=== PATIENT | female | born 1985 | race Caucasian/White ===

== ENCOUNTER 2020-08-01 08:44 | Outpatient (REF) | payer MEDICAID, SELFPAY ==
--- NOTE | 2020-08-01 08:48 | EMG_ITS ---
HISTORY OF PRESENT ILLNESS: This is a 35-year-old woman with 6-month history of bilateral upper extremity pain and numbness and tingling and locking of the fingers with the right being worse than the left. PHYSICAL EXAMINATION: On examination, she is alert and oriented with normal intellectual functions. Cranial nerves II through XII are normal. Muscle tone and strength are normal in all 4 extremities. There is mild weakness of the right abductor pollicis brevis. IMPRESSION: Carpal tunnel syndrome. Nerve conduction EMG study: Moderate carpal tunnel syndrome on the right. Normal EMG of the right C5-T1 innervated muscles. MD NICKI Bernal/NARINDER / [id number]
== END 2020-08-01 08:45 | disposition home or self-care (01) ==
LOC: HO.NEURO 08:44
PROVIDERS: Visit Provider Nurse Practitioner
DX: G56.01 Carpal tunnel syndrome, right upper limb (principal)
CPT/HCPCS: 95885; 95913

== ENCOUNTER 2020-08-28 09:45 | Outpatient (REF) | payer MEDICAID, SELFPAY ==
--- NOTE | ~2020-08-28 | XR_ITS ---
EXAMINATION: XR KNEE, LEFT CLINICAL INFORMATION: Left knee pain COMPARISON: None TECHNIQUE: Four views of the left knee. FINDINGS: Bones and soft tissues are normal. No fracture or joint effusion. Alignment is anatomic. Joint spaces are well maintained. No abnormal soft tissue calcification. XR/XR knee LT 4V IMPRESSION: Normal left knee.
== END 2020-08-28 09:46 | disposition home or self-care (01) ==
LOC: HO.XRAY 09:45
PROVIDERS: PCP Nurse Practitioner; Visit Provider Nurse Practitioner
DX: M25.562 Pain in left knee (principal)
CPT/HCPCS: 73564

== ENCOUNTER → 2020-09-25 10:37 | Outpatient (BNVA) | payer MEDICAID, SELFPAY | PROVIDERS: Visit Provider Orthopaedic Surgery | DX: G56.01 Carpal tunnel syndrome, right upper limb (principal) | CPT/HCPCS: 99202 ==

== ENCOUNTER 2020-11-15 09:00 | Day surgery (SDC) | payer MEDICAID, SELFPAY ==
[2020-11-15 09:18] VITALS: BP 99/37; PULSE 70; RESP 18; TEMP 37.2; O2SAT 98
[2020-11-15 09:20] VITALS: BMI 17.7
--- NOTE | 2020-11-15 09:40 | MHC.SHP ---
Pre-Procedural Eval Section A Date of Service: 11/15/20 Section B Chief Complaint: carpal tunnel Allergies: Allergies Allergy/AdvReac Type Severity Reaction Status Date / Time No Known Allergies Allergy Verified 09/25/20 11:03 Plan I have reviewed the history and physical and performed a pertinent physical examination on my patient. No changes have occurred unless specified.
--- NOTE | 2020-11-15 09:40 | W.PM.OPN ---
Operative Note Operative Note Date of Service: 11/15/20 Narrative: Preop diagnosis: 1. Right Carpal tunnel syndrome Postop diagnosis: same Procedure: 1. right Carpal tunnel release Surgeon: Thea Cedeno MD Anesthesia: local block using 1% lidocaine with epinephrine Findings: Thickened transverse carpal ligament. EBL: Less than 5 mL Specimens: None Complications: None Disposition: Brought to recovery room in stable condition Plan: Follow-up for 7-10 days for wound check and suture removal Indications: The patient is 35 years old, with right carpal tunnel syndrome that has been unresponsive to nonoperative management. The risks and benefits of operative treatment including but not limited to risk of damage to blood vessels, nerves, tendons, infection, persistent pain, persistent symptoms, or possible need for additional surgery were discussed with the patient and the patient wishes to proceed with surgery. Procedure: Once consent was obtained a local block was performed using a combination of 1% lidocaine with epinephrine. The patient was then brought back to the operating suite and placed on the operative table in supine position. A tourniquet was applied to the proximal aspect of the right upper extremity and the limb was prepped and draped in a standard surgical fashion. Once assured that we had a good block, a 1.5 cm longitudinal incision was made centered over the carpal tunnel. The incision was made through the skin to the subcutaneous tissues using a #15 blade. Dissection was made down to the level of the transverse carpal ligament with care being taken to protect the palmar cutaneous nerve. Once the transverse carpal ligament was clearly visualized, a longitudinal incision was made in the transverse carpal ligament 1st using a #15 blade, then using tenotomy scissors under direct visualization. Care was taken to look for and protect the motor branch of the median nerve when seen in this area. Once satisfied with our carpal tunnel release the wound was copiously irrigated with normal saline and hemostasis was obtained with a brief period of local pressure. The skin edges were reapproximated with some 5.0 nylon suture material and a sterile dressing was applied. The patient appears to have tolerated the procedure well and with no complications. All digits were well vascularized at the conclusion of the case.
[2020-11-15 11:30] VITALS: BP 97/26; PULSE 53; RESP 18; TEMP 37.3; O2SAT 97
[2020-11-15 11:34] VITALS: BP 97/52
== END 2020-11-15 11:55 | disposition home or self-care (01) ==
PROVIDERS: PCP Nurse Practitioner; Visit Provider Orthopaedic Surgery
PROC: (CPT 64721; principal; 2020-11-15 10:30)
DX: G56.01 Carpal tunnel syndrome, right upper limb (principal); F17.210 Nicotine dependence, cigarettes, uncomplicated
CPT/HCPCS: 64721

== ENCOUNTER → 2020-11-27 12:45 | Outpatient (BNVA) | payer MEDICAID, SELFPAY | PROVIDERS: Visit Provider Orthopaedic Surgery | DX: G56.01 Carpal tunnel syndrome, right upper limb (principal); F17.210 Nicotine dependence, cigarettes, uncomplicated; Z48.02 Encounter for removal of sutures | CPT/HCPCS: 99212 ==

== ENCOUNTER → 2021-08-06 11:29 | Outpatient (BNVA) | payer MEDICAID, SELFPAY | PROVIDERS: Visit Provider Orthopaedic Surgery | DX: R20.0 Anesthesia of skin (principal); R20.2 Paresthesia of skin; Z86.69 Personal history of other diseases of the nervous system and sense organs; Z98.890 Other specified postprocedural states | CPT/HCPCS: 99212 ==

== ENCOUNTER 2021-10-30 08:39 | Outpatient (REF) | payer MEDICAID, SELFPAY ==
--- NOTE | 2021-10-30 | EMG_ITS ---
HISTORY OF PRESENT ILLNESS: This is a 36-year-old woman with a history of right carpal tunnel release about 10 months ago, comes in with recurrence and continuing symptoms of numbness in the right hand and worsening numbness in the left hand. The hands feel stiff and swollen. PHYSICAL EXAMINATION: On examination, she has a well-healed scar of right carpal tunnel release. Muscle tone and strength are normal. No Tinel or Phalen sign. IMPRESSION: Carpal tunnel syndrome. Nerve conduction EMG study: Mild carpal tunnel syndrome bilaterally, slightly worse on the right. Compared to the study of 08/01/2020, there appears to be mild improvement on the right, but mild worsening on the left. Normal EMG of the right C5-T1 innervated muscles. MD NICKI Bernal/NARINDER / [id number]
== END 2021-10-30 08:40 | disposition home or self-care (01) ==
LOC: HO.NEURO 08:39
PROVIDERS: Visit Provider Orthopaedic Surgery
DX: R20.0 Anesthesia of skin (principal); R20.2 Paresthesia of skin
CPT/HCPCS: 95885; 95913

== ENCOUNTER → 2021-11-08 09:02 | Outpatient (BNVA) | payer MEDICAID, SELFPAY | PROVIDERS: PCP Nurse Practitioner; Visit Provider Orthopaedic Surgery | DX: G56.03 Carpal tunnel syndrome, bilateral upper limbs (principal) | CPT/HCPCS: 99212 ==

== ENCOUNTER 2022-12-25 15:24 | Outpatient (REF) | payer MEDICAID, SELFPAY ==
[2022-12-25 16:08] LABS: MANUAL DIFF FLAG NO
[2022-12-25 16:12] LABS: Basophils Percent Auto 0.5 % (0-2); Eosinophils Absolute Auto 0.1 X10*3/uL (0.0-0.4); Eosinophils Percent Auto 0.9 % (0-4); Hematocrit 42.5 % (37.0-47.0); Hemoglobin 14.6 g/dl (12.0-16.0); Imm Gran Abs Auto 0.02 X10*3/uL (0.00-0.03); Imm Gran Pct Auto 0.3 % (0.0-0.4); Lymphocytes Absolute Auto 3.4 X10*3/uL (1.2-4.9); Lymphocytes Percent Auto 42.4 % (20-40); Mean Corpuscular HGB Conc 34.4 g/dl (31.0-35.0); Mean Corpuscular Hemoglobin 33.5 pg (27.0-33.0); Mean Corpuscular Volume 97.5 fL (80.0-98.0); Mean Platelet Volume 11.6 fL (9.4-12.3); Monocytes Absolute Auto 0.6 X10*3/uL (0.1-1.2); Monocytes Percent Auto 7.8 % (2-11); Neutrophils Absolute Auto 3.8 x10*3/uL (2.0-8.3); Neutrophils Percent Auto 48.1 % (45-73); Platelet Count 229 X10*3/uL (160-400); Red Blood Count 4.36 X10*6/uL (4.20-5.50); Red Cell Distribution Width 11.8 % (11.0-16.0)
[2022-12-25 16:50] LABS: Rheumatoid Factor < 13.0 IU/mL (<15.0)
[2022-12-25 16:58] LABS: Anion Gap 13 (12-20); Blood Urea Nitrogen 8 mg/dL (9-16); C Reactive Protein < 0.04 mg/dL (< or = 0.50); Calcium 9.9 mg/dL (8.4-10.2); Carbon Dioxide 26 mmol/L (22-29); Chloride 104 mmol/L (96-108); Estimated Glomerular Filt Rate > 60; Glucose Random 77 mg/dL (60-115); Potassium 3.9 mmol/L (3.3-5.1); Sodium 139 mmol/L (135-145)
[2022-12-25 17:07] LABS: Erythrocyte Sedimentation Rate 7 MM/HR (0-20)
[2022-12-25 17:13] LABS: Vitamin B12 312 pg/mL (200-900)
[2022-12-25 17:20] LABS: TSH reflex Free T4 1.37 uIU/mL (0.32-4.0)
[2022-12-26 16:48] LABS: Cyclic Citrullinated Peptide <16 UNITS
== END 2022-12-25 15:25 | disposition home or self-care (01) ==
LOC: HO.HHCL 15:24
PROVIDERS: Visit Provider Registered Nurse
DX: M25.50 Pain in unspecified joint (principal)
CPT/HCPCS: 36415; 80048; 82607; 84443; 85025; 85652; 86140; 86200; 86431

== ENCOUNTER 2023-01-29 13:20 | Outpatient (REF) | payer MEDICAID, SELFPAY ==
--- NOTE | 2023-01-29 | EMG_ITS ---
Chief complaint: History of right Carpal Tunnel Syndrome surgery 2021 but continues to have pain/numbness. History of left Carpal Tunnel Syndrome. Reason for referral: Evaluate for Carpal Tunnel Syndrome, compare to previous studies Referred by: Dr. Cedeno Procedure done: Bilateral upper extremities NCS/EMG Precautions and/or limitations: None The limb temperature was monitored continuously and remained between 32-36 degrees C during the performance of the NCS. Nerve Conduction Studies Anti Sensory Summary Table ?Stim Site NR Onset (ms) Norm Onset (ms) Peak (ms) Norm Peak (ms) O-P Amp (?V) Norm O-P Amp Site1 Site2 Delta-0 (ms) Dist (cm) Juan Alberto (m/s) Norm Juan Alberto (m/s) Left Median Anti Sensory (2nd Digit) Wrist ? 3.2 3.9 <3.6 40.7 >10 Wrist 2nd Digit 3.2 14.0 44 Right Median Anti Sensory (2nd Digit) Wrist ? 3.0 3.9 <3.6 41.1 >10 Wrist 2nd Digit 3.0 14.0 47 Right Radial Anti Sensory (Thumb) Forearm ? 1.8 2.3 <3.1 32.0 Forearm Thumb 1.8 0.0 Left Ulnar Anti Sensory (5th Digit) Wrist ? 2.6 3.2 <3.7 49.1 >15.0 Wrist 5th Digit 2.6 14.0 54 Right Ulnar Anti Sensory (5th Digit) Wrist ? 2.6 3.4 <3.7 45.9 >15.0 Wrist 5th Digit 2.6 14.0 54 Motor Summary Table ?Stim Site NR Onset (ms) Norm Onset (ms) O-P Amp (mV) Norm O-P Amp iAmp (mV) Amp (1st) (%) Site1 Site2 Delta-0 (ms) Dist (cm) Juan Alberto (m/s) Norm Juan Alberto (m/s) Left Median Motor (Abd Poll Brev) Wrist ? 3.6 <3.9 6.9 >4.5 9.8 100.0 Elbow Wrist 3.3 18.0 55 >45 Elbow ? 6.9 7.2 10.1 104.3 Right Median Motor (Abd Poll Brev) Wrist ? 3.8 <3.9 8.6 >4.5 9.6 100.0 Elbow Wrist 3.5 20.0 57 >45 Elbow ? 7.3 8.2 9.5 95.3 Left Ulnar Motor (Abd Dig Minimi) Wrist ? 2.7 <3.0 8.3 >5 9.7 100.0 B Elbow Wrist 3.2 18.5 58 >45 B Elbow ? 5.9 8.6 10.2 103.6 A Elbow B Elbow 1.9 10.0 53 >45 A Elbow ? 7.8 8.6 10.2 103.6 Right Ulnar Motor (Abd Dig Minimi) Wrist ? 3.0 <3.0 8.5 >5 10.6 100.0 B Elbow Wrist 2.8 16.5 59 >45 B Elbow ? 5.8 7.9 10.2 92.9 A Elbow B Elbow 1.9 10.0 53 >45 A Elbow ? 7.7 8.1 10.5 95.3 EMG ?Side Muscle Nerve Root Ins Act Fibs Psw Amp Dur Poly Recrt Int Pat Comment Right FlexCarRad Median C6-7 Nml Nml Nml Nml Nml 0 Nml Complete Right Biceps Musculocut C5-6 Nml Nml Nml Nml Nml 0 Nml Complete Right Triceps Radial C6-7-8 Nml Nml Nml Nml Nml 0 Nml Complete Right Deltoid Axillary C5-6 Nml Nml Nml Nml Nml 0 Nml Complete Left FlexCarRad Median C6-7 Nml Nml Nml Nml Nml 0 Nml Complete Left Biceps Musculocut C5-6 Nml Nml Nml Nml Nml 0 Nml Complete Left Triceps Radial C6-7-8 Nml Nml Nml Nml Nml 0 Nml Complete Left Deltoid Axillary C5-6 Nml Nml Nml Nml Nml 0 Nml Complete Left Abd Poll Brev Median C8-T1 Nml Nml Nml Nml Nml 0 Nml Complete Right Abd Poll Brev Median C8-T1 Nml Nml Nml Nml Nml 0 Nml Complete FINDINGS: Bilateral median sensory nerves showed prolonged peak latency. All other nerves tested were within normal. Concentric needle EMG was performed in selected muscles of the bilateral upper extremities. Study did not reveal signs of electric abnormalities as shown in the table below. IMPRESSION: 1. This is an abnormal study. 2. There is electrodiagnostic evidence for bilateral mild median neuropathy at the wrists, consistent with carpal tunnel syndrome. 3. There is no electrodiagnostic evidence for ulnar neuropathy, brachial plexopathy, or cervical radiculopathy. CLINICAL COMMENT: Shows improvement on both sides as compared to NCS/EMG done 2021. Thank you for your kind referral. Sherry Heath MD, KANU Board Certified, [place] [employer] and [employer] (ABPMR) Board Certified, [place] Board [employer] Electrodiagnostic Medicine (ABEM) CODIN [id number] x 2 MTDD
== END 2023-01-29 13:21 | disposition home or self-care (01) ==
LOC: HO.NEURO 13:20
PROVIDERS: PCP Nurse Practitioner; Visit Provider Registered Nurse
DX: R20.0 Anesthesia of skin (principal); R20.2 Paresthesia of skin
CPT/HCPCS: 95886; 95911

== ENCOUNTER → 2023-01-29 13:25 | Outpatient (BNV) | payer MEDICAID, SELFPAY | PROVIDERS: PCP Nurse Practitioner; Visit Provider Physical Medicine & Rehabilitation | DX: G56.13 Other lesions of median nerve, bilateral upper limbs (principal); G56.03 Carpal tunnel syndrome, bilateral upper limbs | CPT/HCPCS: 95886; 95911 ==

== ENCOUNTER 2023-03-04 10:01 | Outpatient (AMB) | payer MEDICAID, SELFPAY ==
--- NOTE | 2023-03-04 10:14 | A.OFFVIS_ITS ---
Intake Vital Signs 03/04/23 10:19 Height 5 ft 2 in Weight 105 lb BMI 19.2 Intake Visit Reasons: O/V Numb& ting bi hands/EMG 01/29/23. Intake Note: Chelsy 38yr old female presents today for her follow up visit for her right carpal tunnel syndrome status post right carpal tunnel release from 11/15/2020. States she cont's to have numbness in right hand and now her left hand as well. She is not able to sleep due to numbness and burning sensation. Also has locking of her right thumb and index that started about 6 months and has worsen. Allergies No Known Allergies Allergy (Verified 03/04/23 10:22) HPI O/V Numb& ting bi hands/EMG 01/29/23. HPI Details Chelsy is a 38 year old right hand dominant woman who presents for a NCS review of her bilateral hand numbness. She has a hx of right carpal tunnel release with me, DOS: 11/15/20. She says she is a [employer]. Her primary complaint today is of a shooting pain that radiates up the dorsal aspect of her forearms and into her shoulders. She says she cannot sleep due to this pain and her numbness. She complains of numbness in her right wrist and left thumb. She says her wrist numbness is in the dorsal aspect, and extends volarly about her wrist. She denies any numbness in the fingers of her right hand. Concerning her left hand, she has numbness to part of the pad of her thumb, and the back of her thumb. She denies any numbness in other digits She initially had good improvement in her right hand sensation following surgery, but her numbness began to return, now about the wrist rather than the fingers, ~6 months following. She also complains of ~6 months painful locking of her right thumb and index finger. She demonstrated that the right index finger and thumb lock in white abduction, as when grasping a large bottle. They do not lock in flexion. She says she is dropping objects often due to her numbness and locking. [facility] Social History Patient Tobacco Use Status: Current everyday Tobacco user Tobacco use type: Cigarette Cigarettes Per Day: 10 Current occupational status: employed Current occupation: [employer]/ rt handed Review of Systems Const All systems reviewed & are unremarkable except as noted in HPI and below Physical Exam Vital Signs: BMI result Body Mass Index 19.2 Const General: no acute distress and alert Orientation/consciousness: patient oriented x3 Neuro General: patient oriented x3 Extrem Other: Evaluation of Bilateral Upper Extremity: The patient is alert, oriented, and in no acute distress Neuro: Median, Ulnar, Radial nerves motor and sensory intact and sensation is normal to the tips of all digits No thenar or intrinsic wasting Good APB muscle belly firing and good finger cross Vascular: Cap refill brisk ROM: She can make a fist and extend all her digits No locking or catching No tenderness about the a1 pulleys She demonstrated that her right thumb & index fingers occasionally get stuck in ABduction and extension, in position as in when about to grab a bottle. They do not get stuck in flexion She demonstrated some pain that radiates up her dorsal forearms bilaterally, through the anterior aspect of her upper arms, and into her shoulders bilaterally Nerve Conduction Study: IMPRESSION: 1. This is an abnormal study. 2. There is electrodiagnostic evidence for bilateral mild median neuropathy at the wrists, consistent with carpal tunnel syndrome. 3. There is no electrodiagnostic evidence for ulnar neuropathy, brachial plexopathy, or cervical radiculopathy. CLINICAL COMMENT: Shows improvement on both sides as compared to NCS/EMG done 2021. Thank you for your kind referral. Sherry Heath MD, KANU 01/29/23 Psych Appearance: grossly normal Affect: normal affect Attitude: cooperative Assessment & Plan Assessment & Plan (1) Carpal tunnel syndrome of right wrist: Code(s): G56.01 - Carpal tunnel syndrome, right upper limb (2) Carpal tunnel syndrome of left wrist: Code(s): G56.02 - Carpal tunnel syndrome, left upper limb (3) Bilateral arm pain: Code(s): M79.601 - Pain in right arm; M79.602 - Pain in left arm Plan Assessment and plan: 1. Left carpal tunnel syndrome, mild Symptoms intermittent and occasional, worse at night I educated her about this condition I discussed operative and non-operative treatment options She will take time to consider treatment options and pay attention to the frequency and severity of her symptoms If her symptoms increase or worsen then she can follow up prn to discuss treatment options. 2. Bilateral arm pain Dorsal aspect of bilateral forearms radiating up into her shoulders I educated her about these conditions I ordered OT hand therapy to work on stretching exercises and normalizing function I explained that this is not related to her Carpal tunnel syndrome and would likely not improve with surgery She can follow up prn 3. Right carpal tunnel syndrome, S/P release DOS: 11/15/20 Symptoms intermittent and occasional, worse at night She initially had good resolution of symptoms following surgery. Beginning in May of 2021 she started having some increasing but intermittent symptoms in her right hand. It is intermittent and it can occur in the daytime and the nighttime.? She also feels like the numbness is mostly about the dorsal and volar aspect of the wrist, and travels up her forearm to her elbow. Repeat NCS shows mild carpal tunnel syndrome, but improved since her right carpal tunnel release and previous NCS done in 2021 Scribed for Thea Cedeno MD by Ihsan Ascencio, medical oncology physician, on 03/04/23 at 10:35 AM, EST. Orders: Orders OT Evaluation and Treatment Today M79.601 - Pain in right arm, M79.602 - Pain in left arm Coding Level of Care Code Est Pt Level 4 (61032) Diagnoses Carpal tunnel syndrome of right wrist G56.01 Carpal tunnel syndrome of left wrist G56.02 Bilateral arm pain M79.601; M79.602
[2023-03-04 10:19] VITALS: BMI 19.2
== END 2023-03-04 11:21 | disposition home or self-care (01) ==
PROVIDERS: PCP Nurse Practitioner; Visit Provider Orthopaedic Surgery
DX: G56.03 Carpal tunnel syndrome, bilateral upper limbs (principal); M79.601 Pain in right arm; M79.602 Pain in left arm
CPT/HCPCS: 99213

== ENCOUNTER → 2023-03-04 10:01 | Outpatient (BNVA) | payer MEDICAID, SELFPAY | PROVIDERS: PCP Nurse Practitioner; Visit Provider Orthopaedic Surgery | DX: G56.02 Carpal tunnel syndrome, left upper limb (principal); M79.601 Pain in right arm; M79.602 Pain in left arm; Z86.69 Personal history of other diseases of the nervous system and sense organs | CPT/HCPCS: 99212 ==

== ENCOUNTER 2023-08-25 11:51 | Outpatient (REF) | payer MEDICAID, SELFPAY ==
--- NOTE | ~2023-08-25 | XR_ITS ---
EXAMINATION: XR BILATERAL KNEES XR BILATERAL HANDS XR BILATERAL FEET CLINICAL INFORMATION: Chronic polyarthralgia. Order states chronic pain in bilateral knees, polyarthralgia of hands and feet. Patient had difficulty positioning right hand for lateral, best attempts per technologist statement. TECHNIQUE: 4 views of each knee. 3 views of each hand. 3 views of each foot. COMPARISON: Left knee 08/28/2020. Right hand 12/21/2022. FINDINGS: LEFT KNEE: Moderate joint effusion. Mild narrowing of the medial compartment. Alignment preserved. RIGHT HAND: Mild degenerative changes in the first carpometacarpal joint with joint space narrowing and hypertrophic change. Bone mineralization is normal. Alignment preserved. LEFT HAND: Mild degenerative changes in the first carpometacarpal joint with joint space narrowing and hypertrophic change. Alignment is preserved. No displaced fracture appreciated. RIGHT FOOT: Metatarsus adductus, hallux valgus with medial soft tissue bunion. Mild degenerative changes first metatarsophalangeal joint. Bone mineralization is normal. No significant plantar calcaneal spur. Mixed sclerotic and lucent appearance of the sesamoids lateral view. Correlation with clinical exam recommended. LEFT FOOT: Sclerotic focus in the partially imaged distal tibia measuring 6 mm is characteristic of a bone island. XR/XR foot RT min 3V IMPRESSION: 1. Moderate joint effusion left knee. Mild degenerative changes left knee. 2. Mild degenerative changes bilateral first carpometacarpal joints. 3. Metatarsus adductus, hallux valgus with medial soft tissue bunion right foot. Mild degenerative changes first metatarsophalangeal joint. 4. Mixed sclerotic and lucent appearance of the sesamoids lateral view asymmetrically on the right. Correlation with clinical exam recommended.
--- NOTE | ~2023-08-25 | XR_ITS ---
EXAMINATION: XR BILATERAL KNEES XR BILATERAL HANDS XR BILATERAL FEET CLINICAL INFORMATION: Chronic polyarthralgia. Order states chronic pain in bilateral knees, polyarthralgia of hands and feet. Patient had difficulty positioning right hand for lateral, best attempts per technologist statement. TECHNIQUE: 4 views of each knee. 3 views of each hand. 3 views of each foot. COMPARISON: Left knee 08/28/2020. Right hand 12/21/2022. FINDINGS: LEFT KNEE: Moderate joint effusion. Mild narrowing of the medial compartment. Alignment preserved. RIGHT HAND: Mild degenerative changes in the first carpometacarpal joint with joint space narrowing and hypertrophic change. Bone mineralization is normal. Alignment preserved. LEFT HAND: Mild degenerative changes in the first carpometacarpal joint with joint space narrowing and hypertrophic change. Alignment is preserved. No displaced fracture appreciated. RIGHT FOOT: Metatarsus adductus, hallux valgus with medial soft tissue bunion. Mild degenerative changes first metatarsophalangeal joint. Bone mineralization is normal. No significant plantar calcaneal spur. Mixed sclerotic and lucent appearance of the sesamoids lateral view. Correlation with clinical exam recommended. LEFT FOOT: Sclerotic focus in the partially imaged distal tibia measuring 6 mm is characteristic of a bone island. XR/XR foot LT min 3V IMPRESSION: 1. Moderate joint effusion left knee. Mild degenerative changes left knee. 2. Mild degenerative changes bilateral first carpometacarpal joints. 3. Metatarsus adductus, hallux valgus with medial soft tissue bunion right foot. Mild degenerative changes first metatarsophalangeal joint. 4. Mixed sclerotic and lucent appearance of the sesamoids lateral view asymmetrically on the right. Correlation with clinical exam recommended.
--- NOTE | ~2023-08-25 | XR_ITS ---
EXAMINATION: XR BILATERAL KNEES XR BILATERAL HANDS XR BILATERAL FEET CLINICAL INFORMATION: Chronic polyarthralgia. Order states chronic pain in bilateral knees, polyarthralgia of hands and feet. Patient had difficulty positioning right hand for lateral, best attempts per technologist statement. TECHNIQUE: 4 views of each knee. 3 views of each hand. 3 views of each foot. COMPARISON: Left knee 08/28/2020. Right hand 12/21/2022. FINDINGS: LEFT KNEE: Moderate joint effusion. Mild narrowing of the medial compartment. Alignment preserved. RIGHT HAND: Mild degenerative changes in the first carpometacarpal joint with joint space narrowing and hypertrophic change. Bone mineralization is normal. Alignment preserved. LEFT HAND: Mild degenerative changes in the first carpometacarpal joint with joint space narrowing and hypertrophic change. Alignment is preserved. No displaced fracture appreciated. RIGHT FOOT: Metatarsus adductus, hallux valgus with medial soft tissue bunion. Mild degenerative changes first metatarsophalangeal joint. Bone mineralization is normal. No significant plantar calcaneal spur. Mixed sclerotic and lucent appearance of the sesamoids lateral view. Correlation with clinical exam recommended. LEFT FOOT: Sclerotic focus in the partially imaged distal tibia measuring 6 mm is characteristic of a bone island. XR/XR hand RT min 3V IMPRESSION: 1. Moderate joint effusion left knee. Mild degenerative changes left knee. 2. Mild degenerative changes bilateral first carpometacarpal joints. 3. Metatarsus adductus, hallux valgus with medial soft tissue bunion right foot. Mild degenerative changes first metatarsophalangeal joint. 4. Mixed sclerotic and lucent appearance of the sesamoids lateral view asymmetrically on the right. Correlation with clinical exam recommended.
--- NOTE | ~2023-08-25 | XR_ITS ---
EXAMINATION: XR BILATERAL KNEES XR BILATERAL HANDS XR BILATERAL FEET CLINICAL INFORMATION: Chronic polyarthralgia. Order states chronic pain in bilateral knees, polyarthralgia of hands and feet. Patient had difficulty positioning right hand for lateral, best attempts per technologist statement. TECHNIQUE: 4 views of each knee. 3 views of each hand. 3 views of each foot. COMPARISON: Left knee 08/28/2020. Right hand 12/21/2022. FINDINGS: LEFT KNEE: Moderate joint effusion. Mild narrowing of the medial compartment. Alignment preserved. RIGHT HAND: Mild degenerative changes in the first carpometacarpal joint with joint space narrowing and hypertrophic change. Bone mineralization is normal. Alignment preserved. LEFT HAND: Mild degenerative changes in the first carpometacarpal joint with joint space narrowing and hypertrophic change. Alignment is preserved. No displaced fracture appreciated. RIGHT FOOT: Metatarsus adductus, hallux valgus with medial soft tissue bunion. Mild degenerative changes first metatarsophalangeal joint. Bone mineralization is normal. No significant plantar calcaneal spur. Mixed sclerotic and lucent appearance of the sesamoids lateral view. Correlation with clinical exam recommended. LEFT FOOT: Sclerotic focus in the partially imaged distal tibia measuring 6 mm is characteristic of a bone island. XR/XR hand LT min 3V IMPRESSION: 1. Moderate joint effusion left knee. Mild degenerative changes left knee. 2. Mild degenerative changes bilateral first carpometacarpal joints. 3. Metatarsus adductus, hallux valgus with medial soft tissue bunion right foot. Mild degenerative changes first metatarsophalangeal joint. 4. Mixed sclerotic and lucent appearance of the sesamoids lateral view asymmetrically on the right. Correlation with clinical exam recommended.
--- NOTE | ~2023-08-25 | XR_ITS ---
EXAMINATION: XR BILATERAL KNEES XR BILATERAL HANDS XR BILATERAL FEET CLINICAL INFORMATION: Chronic polyarthralgia. Order states chronic pain in bilateral knees, polyarthralgia of hands and feet. Patient had difficulty positioning right hand for lateral, best attempts per technologist statement. TECHNIQUE: 4 views of each knee. 3 views of each hand. 3 views of each foot. COMPARISON: Left knee 08/28/2020. Right hand 12/21/2022. FINDINGS: LEFT KNEE: Moderate joint effusion. Mild narrowing of the medial compartment. Alignment preserved. RIGHT HAND: Mild degenerative changes in the first carpometacarpal joint with joint space narrowing and hypertrophic change. Bone mineralization is normal. Alignment preserved. LEFT HAND: Mild degenerative changes in the first carpometacarpal joint with joint space narrowing and hypertrophic change. Alignment is preserved. No displaced fracture appreciated. RIGHT FOOT: Metatarsus adductus, hallux valgus with medial soft tissue bunion. Mild degenerative changes first metatarsophalangeal joint. Bone mineralization is normal. No significant plantar calcaneal spur. Mixed sclerotic and lucent appearance of the sesamoids lateral view. Correlation with clinical exam recommended. LEFT FOOT: Sclerotic focus in the partially imaged distal tibia measuring 6 mm is characteristic of a bone island. XR/XR knee LT 4V IMPRESSION: 1. Moderate joint effusion left knee. Mild degenerative changes left knee. 2. Mild degenerative changes bilateral first carpometacarpal joints. 3. Metatarsus adductus, hallux valgus with medial soft tissue bunion right foot. Mild degenerative changes first metatarsophalangeal joint. 4. Mixed sclerotic and lucent appearance of the sesamoids lateral view asymmetrically on the right. Correlation with clinical exam recommended.
--- NOTE | ~2023-08-25 | XR_ITS ---
EXAMINATION: XR BILATERAL KNEES XR BILATERAL HANDS XR BILATERAL FEET CLINICAL INFORMATION: Chronic polyarthralgia. Order states chronic pain in bilateral knees, polyarthralgia of hands and feet. Patient had difficulty positioning right hand for lateral, best attempts per technologist statement. TECHNIQUE: 4 views of each knee. 3 views of each hand. 3 views of each foot. COMPARISON: Left knee 08/28/2020. Right hand 12/21/2022. FINDINGS: LEFT KNEE: Moderate joint effusion. Mild narrowing of the medial compartment. Alignment preserved. RIGHT HAND: Mild degenerative changes in the first carpometacarpal joint with joint space narrowing and hypertrophic change. Bone mineralization is normal. Alignment preserved. LEFT HAND: Mild degenerative changes in the first carpometacarpal joint with joint space narrowing and hypertrophic change. Alignment is preserved. No displaced fracture appreciated. RIGHT FOOT: Metatarsus adductus, hallux valgus with medial soft tissue bunion. Mild degenerative changes first metatarsophalangeal joint. Bone mineralization is normal. No significant plantar calcaneal spur. Mixed sclerotic and lucent appearance of the sesamoids lateral view. Correlation with clinical exam recommended. LEFT FOOT: Sclerotic focus in the partially imaged distal tibia measuring 6 mm is characteristic of a bone island. XR/XR knee RT 4V IMPRESSION: 1. Moderate joint effusion left knee. Mild degenerative changes left knee. 2. Mild degenerative changes bilateral first carpometacarpal joints. 3. Metatarsus adductus, hallux valgus with medial soft tissue bunion right foot. Mild degenerative changes first metatarsophalangeal joint. 4. Mixed sclerotic and lucent appearance of the sesamoids lateral view asymmetrically on the right. Correlation with clinical exam recommended.
== END 2023-08-25 11:52 | disposition home or self-care (01) ==
LOC: HO.HHCX 11:51
PROVIDERS: Visit Provider Registered Nurse
DX: M79.641 Pain in right hand (principal); M79.642 Pain in left hand; M79.671 Pain in right foot; M79.672 Pain in left foot; M25.561 Pain in right knee; M25.562 Pain in left knee; G89.29 Other chronic pain
CPT/HCPCS: 73130; 73564; 73630

== ENCOUNTER 2023-11-11 19:34 | Outpatient (REF) | payer MEDICAID, SELFPAY ==
[2023-11-12 11:58] LABS: Bacterial Vaginosis PCR POSITIVE (Negative); Candida Group PCR DETECTED (Not Detect); Candida glab krusei PCR NOT DETECTED (Not Detect); Trichomonas vaginalis PCR NOT DETECTED (Not Detect)
== END 2023-11-11 19:35 | disposition home or self-care (01) ==
LOC: HO.CHCLNP 19:34
PROVIDERS: Visit Provider Registered Nurse
DX: N89.8 Other specified noninflammatory disorders of vagina (principal)
CPT/HCPCS: 0352U

== ENCOUNTER 2023-11-23 15:18 | Outpatient (REF) | payer MEDICAID, SELFPAY ==
--- NOTE | ~2023-11-23 | MM_ITS ---
EXAMINATION: MM SCREENING DIGITAL BREAST TOMOSYNTHESIS, BILATERAL CLINICAL INFORMATION: Screening. Asymptomatic. COMPARISON: Mammography: This is a baseline study. TECHNIQUE: Digital breast tomosynthesis is performed in both the craniocaudal and mediolateral oblique views along with computer-aided detection (CAD). Synthesized 2D images are generated from the tomosynthesis. FINDINGS: The breasts are extremely dense, which lowers the sensitivity of mammography (ACR BI-RADS breast composition Category d). There are no significant masses, abnormal calcifications, or other abnormalities. MM/MM tomosynthesis screening BI IMPRESSION: No mammographic evidence of malignancy. ASSESSMENT: BI-RADS BI-RADS 1 - Negative RECOMMENDATION: Routine annual mammography screening. 1 year F/U This examination should not preclude the clinical evaluation of a suspicious palpable abnormality. This patient's information was entered into a reminder system with a target due date for their next mammogram.
== END 2023-11-23 15:19 | disposition home or self-care (01) ==
LOC: HO.MAMMO 15:18
PROVIDERS: PCP Registered Nurse; Visit Provider Registered Nurse
DX: Z12.31 Encounter for screening mammogram for malignant neoplasm of breast (principal)
CPT/HCPCS: 77063; 77067

== ENCOUNTER → 2023-11-23 15:30 | Outpatient (BNV) | payer MEDICAID, SELFPAY | PROVIDERS: PCP Registered Nurse; Visit Provider Radiology Diagnostic Radiology | DX: Z12.31 Encounter for screening mammogram for malignant neoplasm of breast (principal) | CPT/HCPCS: 77063; 77067 ==

== ENCOUNTER 2024-02-23 09:08 | Outpatient (AMB) | payer MEDICAID, SELFPAY ==
--- NOTE | 2024-02-23 09:14 | A.OFFVIS_ITS ---
Intake Visit Reasons: Newprob-Chronic pain of both knees Intake Note: Chelsy is a 39 year old female who presents today for a new problem visit with complaints of chronic pain of her bilateral knees. Pt states she has locking of her knees and states her left knee is worse. Pt states she was recently diagnosed with fibromylagia from her PCP. Pt denies any previous surgeries or injections in her knees. Allergies No Known Allergies Allergy (Verified 02/23/24 09:14) HPI HPI Newprob-Chronic pain of both knees: Details: Patient is a 39-year-old female who presents for evaluation of chronic pain of both knees with associated stiffness and a locking sensation, ongoing for approximately 1-2 years. The patient states that this pain and stiffness are worse when driving, and she occasionally has to step out of her vehicle and stretch her knees to be comfortable driving anymore. Patient states that she feels a ?creaking? sensation in her knee The patient states that this pain is primarily located at around her knee caps. Patient states that she would not like any sort of injection today, but would like answers on what is causing her pain. No other acute complaints or concerns at this time. 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 Review of Systems Const All systems reviewed & are unremarkable except as noted in HPI and below Physical Exam Extrem Other: On inspection, there is no visible deformity of the left knee No edema, erythema, ecchymosis noted No lacerations, abrasions, open areas No evidence of infection Patient reports mild to moderate tenderness to palpation in the patella and parapatellar region, No tenderness to palpation of the medial and lateral joint line, posterior knee Positive patellar grind Patient is able to extend the left knee to 0 degrees and flex to approximately 120 degrees without difficulty No ligamentous laxity noted Distal sensation intact Capillary refill brisk Negative Kat's Results Reviewed Results Reviewed: X-rays obtained in the office today and independently reviewed by me, Gagna Nickerson PA-C, demonstrate significant lateralization of bilateral patellas, right worse than left. No fracture or acute bony abnormality noted. Assessment & Plan Assessment & Plan (1) Patellofemoral arthralgia of both knees: Code(s): M22.2X1 - Patellofemoral disorders, right knee; M22.2X2 - Patellofemoral disorders, left knee Category: Medical Plan 1. Patellofemoral arthralgia of bilateral knees with associated lateralization Ongoing for 1-2 years Patient is educated about this condition and the treatment options available Patient would like to proceed with PT of bilateral knees PT ordered for ROM, strengthening, stabilization of bilateral knees Patient is advised that if in 6-8 weeks she is still experiencing significant discomfort, she can call for re-evaluation Patient is amenable to this plan Patient will f/u as needed with any acute concerns Orders: Orders XR knee RT 3V Today M17.11 - Unilateral primary osteoarthritis, right knee XR knee LT 3V Today M25.562 - Pain in left knee PT Evaluation and Treatment Today M22.2X1 - Patellofemoral disorders, right knee, M22.2X2 - Patellofemoral disorders, left knee Coding Level of Care Code Est Pt Level 3 (89883) Diagnoses Patellofemoral arthralgia of both knees M22.2X1; M22.2X2
== END 2024-02-23 10:00 | disposition home or self-care (01) ==
PROVIDERS: PCP Registered Nurse
DX: M22.2X1 Patellofemoral disorders, right knee (principal); M22.2X2 Patellofemoral disorders, left knee
CPT/HCPCS: 99213

== ENCOUNTER 2024-02-23 12:29 | Outpatient (REF) | payer MEDICAID, SELFPAY | END 2024-02-23 12:30 | disposition home or self-care (01) | LOC: HO.HOSX 12:29 | DX: M17.11 Unilateral primary osteoarthritis, right knee (principal); M25.562 Pain in left knee | CPT/HCPCS: 73562; 99212 ==

== ENCOUNTER 2024-03-25 08:27 | Outpatient (REF) | payer MEDICAID, SELFPAY | END 2024-03-25 08:28 | disposition home or self-care (01) | LOC: HO.HOSX 08:27 | DX: M25.511 Pain in right shoulder (principal); M75.101 Unspecified rotator cuff tear or rupture of right shoulder, not specified as traumatic | CPT/HCPCS: 73030; 99212 ==

== ENCOUNTER 2024-03-25 08:54 | Outpatient (AMB) | payer MEDICAID, SELFPAY ==
--- NOTE | 2024-03-25 09:19 | A.OFFVIS_ITS ---
Vital Signs 03/25/24 09:23 Height 5 ft 2 in Weight 105 lb BMI 19.2 Handedness Right Intake Visit Reasons: New prob- Chronic Right shoulder pain Intake Note: Chelsy is a 39 year old right hand dominant female who presents today for a new problem visit with complaints of right shoulder pain that has been going on for approximately 6 months. . Hx of arthritis. Hx of Fibromyalgia. Patient reports her symptoms have been on and half in this time period. Describes a burning sensation and a sharp pain that is on the top of her shoulder and in her axilla. She expresses her right arm falls asleep , says she has hx of CTS. She expresses she feels the pain in the bone. She reports he pain has been affecting her work and she has not been able to work a full 40 hours from this. She enjoys working and this is a concern for her. Tylenol and ibuprofen has only offered mild relief. Allergies No Known Allergies Allergy (Verified 03/25/24 09:24) HPI HPI New prob- Chronic Right shoulder pain: Details: Patient is a 39 old female who presents for evaluation of chronic right shoulder pain, ongoing for 6 months. The patient states that she feels that this pain is primarily in the bones of the right shoulder. The patient states that this pain is not debilitating, but does cause her discomfort throughout the day. Patient does report that she does have some numbness and tingling in the right upper extremity, but does have a history of carpal tunnel syndrome. No other acute complaints or concerns at this time. 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 Review of Systems Const All systems reviewed & are unremarkable except as noted in HPI and below Physical Exam Vital Signs: BMI result Body Mass Index 19.2 Extrem Other: Patient's right shoulder normal to inspection No lacerations, abrasions, open areas noted No evidence of infection Patient reports no tenderness to palpation anywhere in the right shoulder Patient is able to externally rotate to 75 degrees bilaterally without diffi culty Patient is able to forward flex and abduct the bilateral shoulders to 90 degrees without difficulty Negative empty can Negative lift-off Negative belly press Positive Coley Distal sensation intact at this time Capillary refill brisk Results Reviewed Results Reviewed: X-rays obtained in the office today and independently reviewed by me, Gagan Nickerson PA-C, demonstrate no fracture or acute bony abnormality of the right shoulder. Assessment & Plan Assessment & Plan (1) Painful arc syndrome of right shoulder: Code(s): M75.101 - Unspecified rotator cuff tear or rupture of right shoulder, not specified as traumatic Category: Medical Plan 1. Painful arc syndrome of right shoulder Patient is educated about this condition and the treatment options available, At this time, patient would like to be referred to physical therapy for range motion and strengthening of the right shoulder to see if we can avoid any further imaging or potential surgical intervention Patient was referred to PT for range of motion strengthening of the right shoulder in the setting of painful arc syndrome Patient will follow-up as needed with any acute concerns Orders: Orders PT Evaluation and Treatment Today M75.101 - Unspecified rotator cuff tear or rupture of right shoulder, not specified as traumatic XR shoulder RT min 2V Today M25.511 - Pain in right shoulder Coding Level of Care Code Est Pt Level 3 (67890) Diagnoses Painful arc syndrome of right shoulder M75.101
[2024-03-25 09:23] VITALS: BMI 19.2
== END 2024-03-25 09:47 | disposition home or self-care (01) ==
PROVIDERS: PCP Registered Nurse
DX: M75.101 Unspecified rotator cuff tear or rupture of right shoulder, not specified as traumatic (principal)
CPT/HCPCS: 99213

== ENCOUNTER 2024-03-25 09:54 | Outpatient (RCR) | payer MEDICAID, SELFPAY ==
--- NOTE | 2024-03-16 17:26 | MHC.PT.EP ---
[facility] [place] Office [place] Office [place] Office [address] [phone] F: [phone] F: [phone] F: [phone] F: [phone] Physical Therapy Plan of Care Date of Evaluation: 03/16/24 Date of Surgery: Diagnosis: Stabilization of b/l knees (MD Dx) RS b/l knee patellofemoral pain syndrome due to weakness (PT Dx) Assessment: Chelsy is a 39 yo female who was referred by Gagan Nickerson PA-C of [facility], for Dx of stabilization of b/l knees. PT diagnosis is b/l knee patellofemoral pain syndrome due to weakness. Impairments include decreased quad and glute strength, decreased hip extension and b/l trendelenberg during gait, and pain with patellar mobility resulting in her inability to bend down, walk long distances, or navigate stairs. 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 Pt will benefit from skilled PT to address impairments and meet their goals. Frequency and Duration: The patient will be seen 2x/week for 4 weeks Short Term Goals: 2 weeks Patient will be able to perform HEP to independently manage condition. 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 Patient will increase B glute med strength to 4-/5 to be able to navigate stairs without limitation. Treatment Plan: Modalities to reduce pain, spasms and effusion. Manual therapy to restore motion and function. Therapeutic exercise to improve strength and flexibility. Neuromuscular re-education for posture and balance. Therapeutic activities to return to functional activities of daily living. Electronically signed by: Monica Yun, PT, DPT Please sign and return to therapist. Thank you for your referral.
--- NOTE | 2024-06-03 11:56 | MHC.PT.DC ---
[facility] [place] Office [place] Office [place] Office [address]ta [address] [facility] [phone] F: [phone] F: [phone] F: [phone] F: [phone] Physical Therapy Discharge Report Diagnosis: Stabilization of b/l knees (MD Dx) RS b/l knee patellofemoral pain syndrome due to weakness (PT Dx) Date of Surgery: Date of Evaluation: 03/16/24 Date of Discharge: 06/03/24 Treatments to Date: 2 Cancellations to Date: 6 No Shows to Date: 0 Discharge Status: Patient Elected to Stop Visit Non-compliance Discharge Summary: Chelsy was only seen for one FUP after evaluation. During that session on 03/25/25 the assessment read, Chelsy was progressed w/[facility] ex's and had no issues performing program other than fatigue. She cancelled all the remaining visits, for insurance concerns per patient. Therefore she is discharged from PT at this time. Electronically signed by: Monica Yun, PT, DPT Please sign and return to therapist. Thank you for your referral.
== END 2024-06-03 11:56 | disposition home or self-care (01) ==
LOC: HO.PT 09:54
PROVIDERS: PCP Registered Nurse
DX: M22.2X1 Patellofemoral disorders, right knee (principal); M22.2X2 Patellofemoral disorders, left knee
CPT/HCPCS: 97110; 97161; 97535

== ENCOUNTER 2024-06-17 08:54 | Outpatient (AMB) | payer MEDICAID, SELFPAY ==
--- NOTE | 2024-06-17 08:58 | MHC.OFFVIS ---
Vital Signs 06/17/24 09:00 Height 5 ft 2 in Weight 105 lb BMI 19.2 Intake Visit Reasons: OV - Discuss Repeat Right CTR Intake Note: Chelsy is a 39 year old right hand dominant female who presents today for a right carpal tunnel syndrome follow up. History of Right Carpal Tunnel Release 11/15/2020 however she continues to have pain, numbness, and tingling on bilateral thumbs and bilateral middle fingers. Patient states she is also experiencing bilateral index finger locking. Patient verbalizes frustration as she continues to drop items at work. She states braces do not help. She states has never gone to OT for this. Denies other surgeries on her left hand. EMG done 01/29/2023: IMPRESSION: 1. This is an abnormal study. 2. There is electrodiagnostic evidence for bilateral mild median neuropathy at the wrists, consistent with carpal tunnel syndrome. 3. There is no electrodiagnostic evidence for ulnar neuropathy, brachial plexopathy, or cervical radiculopathy. Allergies No Known Allergies Allergy (Verified 06/17/24 09:05) HPI HPI OV - Discuss Repeat Right CTR: Details: Chelsy is a 39 year old right hand dominant female who presents today for a right carpal tunnel syndrome follow up. History of Right Carpal Tunnel Release 11/15/2020 however she continues to have pain, numbness, and tingling on bilateral thumbs and bilateral middle fingers. Patient states she is also experiencing bilateral index finger locking. Patient verbalizes frustration as she continues to drop items at work. She states braces do not help. She states has never gone to OT for this. Denies other surgeries on her left hand. EMG done 01/29/2023: IMPRESSION: 1. This is an abnormal study. 2. There is electrodiagnostic evidence for bilateral mild median neuropathy at the wrists, consistent with carpal tunnel syndrome. 3. There is no electrodiagnostic evidence for ulnar neuropathy, brachial plexopathy, or cervical radiculopathy. 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 Normal sensation to all other digits in the right hand today. Normal sensation in the tips of all digits of the left hand today. No thenar or intrinsic wasting. Good APB muscle firing and good finger cross. Vascular: Capillary refill brisk. ROM: Patient can make a fist and extend all their digits. Skin: No lacerations or abrasions noted. General: No ecchymosis. No erythema or evidence of infection. Assessment & Plan Assessment & Plan (1) Bilateral carpal tunnel syndrome: Code(s): G56.03 - Carpal tunnel syndrome, bilateral upper limbs Category: Medical Plan 1. Carpal tunnel syndrome, right Symptoms intermittent, daily, worse at night Status post carpal tunnel release in 2020 I educated the patient about the condition. I discussed both operative and nonoperative treatment options. The patient would like to proceed with surgery. The risks and benefits of operative treatment were discussed with the patient and the patient wishes to proceed with surgery. These risks include, but are not limited to, risk of damage to blood vessels, nerves, tendons, infection, recurrence, incomplete relief of preoperative symptoms, persistent pain, possible need for further surgery, and the risks associated with regional blocks and/or anesthesia. Plan is to take the patient to the operating room at some point in the next few weeks for the following procedures: 1. Right repeat carpal tunnel release under local All of the preoperative paperwork including the consent was discussed today. All of the patient's questions were answered in the clinic today. The patient understands that they will be in contact with our ash handler to discuss scheduling their procedure. Patient denies diabetes, blood thinners, asthma, heart issues, lung issues, kidney issues, or current smoking. 2. Carpal tunnel syndrome, left Symptoms intermittent, daily, worse at night Patient would like to proceed with operative intervention on the right prior to any intervention of the left, as she finds it more bothersome Patient is educated that if she is recovering well in the right side, we can get the left side signed up at that time at her postop Patient was amenable to this plan Coding Level of Care Code Est Pt Level 4 (34012) Diagnoses Bilateral carpal tunnel syndrome G56.03
[2024-06-17 09:00] VITALS: BMI 19.2
--- OUTSIDE RECORDS SUMMARY | 2024-06-17 09:17 | XMS_ITS | Clinical Summary ---
Author Organization [employer] Address [address] [place] [address] Care Team Providers Care Occupational Therapy Teacher Name Role Phone Amanda Izaguirre [facility] Primary Care Provider [phone] Allergies No known active allergies Medications * This document contains information received from the source organization and may not represent a complete record from that organization. gabapentin (Neurontin) 300 MG capsule Take 300 mg by mouth 3 times daily. 2 Active clonazePAM (KlonoPIN) 1 MG tablet Take 1 tablet (1 mg) by mouth 2 times daily for 28 days. As needed 56 tablet 3 Active diphenhydrAMINE (BENADryl) 25 MG tabletIndicatio ns:Bug bite, initial encounter Take 1 tablet (25 mg) by mouth every 6 (six) hours if needed for itching. 30 tablet 1 3 Active amitriptyline (Elavil) 10 MG tabletIndicatio ns:Fibromyalgia Take 1 tablet (10 mg) by mouth at bedtime. 30 tablet 1 4 Active acetaminophen (Tylenol Extra Strength) 500 MG tabletIndicatio ns:Polyarthralg ia Take 2 tablets (1,000 mg) by mouth every 6 (six) hours if needed for mild pain. 30 tablet 1 4 Active ibuprofen 600 MG tabletIndicatio ns:Polyarthralg ia Take 1 tablet (600 mg) by mouth every 6 (six) hours if needed for mild pain. 30 tablet 1 4 Active Diclofenac Sodium 1 % gelIndications: Polyarthralgia Apply topically to affected areas twice daily 150 g 1 4 Active capsaicin (Zostrix) 0.025 % creamIndication s:Polyarthralgi a Apply topically 2 times daily. 56.6 g 1 4 09/18/19 25 Active QUEtiapine (SEROquel) 50 MG tabletIndicatio ns:Mood disorder (CMS/HCC) Take 1 tablet (50 mg) by mouth at bedtime. OK to increase to 2 tablets (100mg) if tolerating well 60 tablet 1 4 Active cetirizine (ZyrTEC) 10 MG tabletIndicatio ns:Seasonal allergies Take 1 tablet (10 mg) by mouth Once per day. 30 tablet 5 4 Active Ketotifen Fumarate 0.035 % solutionIndicat ions:Seasonal allergies Administer 1 drop into affected eye(s) Once per day. 5 mL 1 4 Active Active Problems Problem Noted Date Diagnosed Date Polyarthralgia 08/06/2023 Overview (11/11/2023): Extensive hx of widespread joint pain worse in bilateral hands. Occasional joint swelling at base of first MCP joint bilaterally. Pain is worse upon waking and lasts >30 minutes. Occasional burning and tingling sensation throughout hands. Pt reports positive family hx of arthritis. Denies fever, rash Labs from 12/2022 unremarkable. CBC, sed rate, TSH, CRP, RF, anti-CCP all WNL. See results below. B12 borderline low. Amitryptiline-with Healthcare maintenance 10/03/2022 Overview (11/11/2023): Mammo: Will place referral Pap: 07/2021 NIL HPV neg C-scope: BMD: HCV Screen: HIV Screen: Immunizations: Screening Labs: Carpal tunnel syndrome 05/12/2022 Overview (01/20/2023): ?? S/p surgery on right hand ?? Mixed anxiety and depressive disorder 05/12/2022 Assessment & Plan (09/04/2023 11:24 AM EDT): During IBH Consult Chelsy presenting with depressed mood, loss of interests/pleasure , changes in sleep difficulty falling asleep, change in appetite or weight reduce appetite, psychomotor retardation, thoughts of worthlessness or guilt, fatigue/loss of energy, inappropriate guilt , hopelessness, excessive worry/anxiety, difficulty controlling worry, restless/keyed up/On edge, easily fatigued, irritability, and sleep disturbance difficulty falling asleep, and Abnormally elevated mood, Decreased need for sleep, Excessive goal directed activity, and Changes in self-image; for a period of 18+ mo, for all symptoms in the context of unable to identify significant stressors. Chelsy reported symptoms are interfering with her daily activities. Stopped seeing therapist/psych providers five years ago. Unable to manage symptoms now without medication. PCP started Clonazepam PRN. More information needed to diagnose bipolar disorder. PLAN: (check all that apply) New/Additional Services needed Off-site services for Behavioral Health Integration Plan External OP therapy referral and OP psychiatry Referral Patient Self Plan Patient to utilize skills provided in intervention , Patient to reach out to [facility] team as needed, Patient to engage in OP therapy , and Patient to reach out to [facility] as needed. Advised booking sooner appointments with [facility]/intake for psychopharmacology and OP individual therapy. Primary insomnia 05/12/2022 Underweight 05/12/2022 Lumbar back pain 12/28/2017 Neck pain 12/28/2017 Mood disorder 03/29/2014 Overview (01/20/2023): ?? Clonazepam PRN 2-3x/month ?? referral placed 11/2022 Assessment & Plan (09/04/2023 11:24 AM EDT): During IBH Consult Chelsy presenting with depressed mood, loss of interests/pleasure , changes in sleep difficulty falling asleep, change in appetite or weight reduce appetite, psychomotor retardation, thoughts of worthlessness or guilt, fatigue/loss of energy, inappropriate guilt , hopelessness, excessive worry/anxiety, difficulty controlling worry, restless/keyed up/On edge, easily fatigued, irritability, and sleep disturbance difficulty falling asleep, and Abnormally elevated mood, Decreased need for sleep, Excessive goal directed activity, and Changes in self-image; for a period of 18+ mo, for all symptoms in the context of unable to identify significant stressors. Chelsy reported symptoms are interfering with her daily activities. Stopped seeing therapist/psych providers five years ago. Unable to manage symptoms now without medication. PCP started Clonazepam PRN. More information needed to diagnose bipolar disorder. PLAN: (check all that apply) New/Additional Services needed Off-site services for Behavioral Health Integration Plan External OP therapy referral and OP psychiatry Referral Patient Self Plan Patient to utilize skills provided in intervention , Patient to reach out to [facility] team as needed, Patient to engage in OP therapy , and Patient to reach out to [facility] as needed. Advised booking sooner appointments with [facility]/intake for psychopharmacology and OP individual therapy. Immunizations Name Administration Dates Next Due Hep B, adult 06/13/2020,07/19/2019 Influenza injectable quadriv alent IIV4 with preservative 07/05/2019 Influenza, Split (incl. purified surface antigen ) 06/13/2013 Pneumococcal Polysaccharide PPSV23 06/13/2013 Pneumococcal, Unspecified 06/13/2013 Tdap 06/13/2013 Social History Tobacco Use Types Packs/Day Years Used Date Smoking Tobacco: Every Day Cigarettes 0.5 23 Passive Smoke Exposure: Current Smokeless Tobacco: Never Tobacco Cessation:Ready to Q uit: Not Asked; Counseling Given: Not Answered Alcohol Use Standard Drinks/Week Comments Not Currently 0 (1 standard drink = 0.6 oz pur e alcohol) Alcohol Answer Date Recorded Frequency of Alcohol Consumption Not on file 08/07/2023 Average Number of Drinks Not on file 024 Frequency of Binge Drinking Not on file 09/2023 Score 0 08/07/2023 Depression Answer Date Recorded Patient Health Questionnaire-9 Score 9 09/01/2023 Patient Health Questionnaire-9 Score 9 09/01/2023 Last PHQ-9: Questionnaire Data Not on file 0 09/01/2023 Housing Stability Answer Date Recorded What is your housing situation today? I have choco solomon 03/02/[address] you li ve. Do you have problems with any of the following? None of the above 03/02/2023 Food Insecurity Answer Date Recorded Within the past 12 months, y ou worried that your food would run out before you got money to buy more: Never True 03/02/2023 Within the past 12 months,th e food you bought just didn't last and you didn't have enough money to get more: Never True Transportation Answer Date Recorded In the past 12 months, has l ack of transportation kept you from medical appts, meetings, work or from getting things needed for daily living? No 03/02/2023 Utilities Answer Date Recorded In the past 12 months, has t he electric, gas, oil or water company threatened to shut off services in your home? No 03/02/2023 Depression Answer Date Recorded Patient Health Questionnaire-2 Score 4 09/01/2023 Comments Unknown Sex and Gender Information Value Date Recorded Sex Assigned at Female 03/03/2022 10:16 AM EDT Legal Sex Female 10:16 AM EDT Gender Identity Female 03/03/2022 10:16 AM EDT Sexual Orientation Straight 03/03/2022 10 :16 AM EDT Last Filed Vital Signs Vital Sign Reading Time Taken Comments Blood Pressure 124/95 11/11/2023 2:16 PM EDT Pulse 70 11/11/2023 2:16 PM EDT Temperature 36.2 ??C (97.2 ??F) 11/11/2023 2:16 PM ED T Respiratory Rate 14 11/11/2023 2:16 PM EDT Oxygen Saturation 98% 11/11/2023 2:16 PM EDT Inhaled Oxygen Concentration - - Weight 47.4 kg (104 lb 6.4 oz) 11/11/2023 2:16 P M EDT Height 157.5 cm (5' 2 ) 11/11/2023 2:16 PM EDT Body Mass Index 19.1 11/11/2023 2:16 PM EDT Plan of Treatment Upcoming Encounters Date Type Department Care Team (Late st Contact Info) Description 06/24/2024 9:15 AM EST Office Visit [facility] [address] [place] [address] [place] F[place] [address] [place] [address] Health Maintenance Due Date Last Done Comments HIV Screening 1985 Lipid Panel 1983 Family Planning (PISQ) 1998 Hepatitis C Screening 2001 Pneumococcal Vaccine: Pediatrics (0 to 5 Years) and At-Risk Patients (6 to 49) Years) (2 of 2 - PCV) 06/13/2014 06/13/2013, 06/13/2013 Hepatitis B Vaccines (3 of 3 - 19+ 3-dose series) 08/08/2020 06/13/2020, 07/19/2019 DTaP/Tdap/Td Vaccines (2 - T d or Tdap) 06/13/2023 06/13/2013 SDOH Screening 09/24/2023 09/23/2022 COVID-19 Vaccine (3 - 2023-2 5 season) 2024 09/21/2020, 08/31/2020 Influenza Vaccine (#1) 2024 , 06/13/2013 Depression Monitoring (PHQ-9) 03/02/2024, 09/01/2023 Pap Smear 07/11/2024 07/11/2021 Alcohol/Substance Use Screening 08/06/2024 08/07/2023 Depression Screening 08/31/2024 09/01/2023, 09/01/2023 Tobacco Screening 11/10/2024 11/11/2023 Mammogram 11/22/2025 11/23/2023 Cervical Cancer Screening 07/11/2026 HPV/Cotest 07/11/2026 07/11/2021 Zoster Vaccines (1 of 2) 2033 RSV Patients and Patients Aged 60 years or older (1 - 1-dose 75+ series) 2058 HIB Vaccines Aged Out No longer eligi ble based on patient's age to complete this topic HPV Vaccines Aged Out No longer eligi ble based on patient's age to complete this topic Hepatitis A Vaccines Aged Out No long er eligible based on patient's age to complete this topic IPV Vaccines Aged Out No longer eligi ble based on patient's age to complete this topic Meningococcal Vaccine Aged Out No al justo eligible based on patient's age to complete this topic RSV under 20 months Aged Out No longe r eligible based on patient's age to complete this topic Rotavirus Vaccines Aged Out No longer eligible based on patient's age to complete this topic Procedures Procedure Name Priority Date/Time Associated Diagnosis Comments BI MAMMOGRAM SCREENING TOMOSYNTHESIS BILATERAL Routine 11/23/2023 4:05 PM EDT Breast cancer screening by mammogram THINPREP IMAGING PAP AND HPV MRNA E6/E7, WITH CT/NG, TRICHOMONAS Routine 07/11/2021 12:00 AM EST from Last 3 Months or Most Recently Relevant to Health Maintenance Results * BI Mammogram Screening Tomosynthesis Bilateral (11/23/2023 4:05 PM EDT) Anatomical Region Laterality Modality Breast Bilateral Mammography 11/23/2023 4:05 PM EDT Narrative 12/15/2023 6:25 PM EDT ? [facility] [place] ? [address] ?[place] [id number] ? Mammography Report ? Signed ? Patient: French,Chelsy ?MR#: [id number] ?? [id number] ? : 1985 ?Acct:[id number] ? Age/Sex: 38 / F ?ADM Date: 11/23/23 ? Loc: HO.MAMMO ? Attending Dr: Amanda Dmitriy COSTUMER ASSISTANT ? Ordering Physician: Dmitriy,Amanda COSTUMER ASSISTANT ?Results: 1Nega ?? tive ? Date of Service: 11/23/23 ?Follow Up: 1 Year From Orig ?? inal Mammogram ? Procedure(s): MM tomosynthesis screening BI ?? Accession Number(s): [id number] ? cc: Dmitriy,Amanda COSTUMER ASSISTANT ? EXAMINATION: ?? MM SCREENING DIGITAL BREAST TOMOSYNTHESIS, BILATERAL ? CLINICAL INFORMATION: ? Screening. Asymptomatic. ? COMPARISON: ?? Mammography: This is a baseline study. ? TECHNIQUE: ?? Digital breast tomosynthesis is performed in both the craniocaudal and ?? mediolateral oblique views along with computer-aided detection (CAD). ?? Synthesized 2D images are generated from the tomosynthesis. ? FINDINGS: ?? The breasts are extremely dense, which lowers the sensitivity of ?? mammography (ACR BI-RADS breast composition Category d). ? There are no significant masses, abnormal calcifications, or other ?? abnormalities. ? MM/MM tomosynthesis screening BI ?? IMPRESSION: ?? No mammographic evidence of malignancy. ? ASSESSMENT: ? BI-RADS BI-RADS 1 - Negative ? RECOMMENDATION: ?? Routine annual mammography screening. ? 1 year F/U ? This examination should not preclude the clinical evaluation of a ?? suspicious palpable abnormality. ? This patient's information was entered into a reminder system with a ?? target due date for their next mammogram. ? Dictated By: ?Neli Benito MD ? Signed By: ?<Electronically signed by Neli Benito MD in OV> ? 12/15/23 1822 ? DD/ 1605 ? TD/TT: ? Appeals Court Associate Justice: ? Procedure Note Vinicius, Fredy - 12/15/2023 [facility] [address] [place] [address] [place]. [place], [place] [address] Mammography Report Signed Patient: Chelsy BraswellMR#: [id number] : 1985Acct:[id number] Age/Sex: 38 / FADM Date: 11/23/23 Loc: HO.MAMMO Attending Dr: Amanda Izaguirre COSTUMER ASSISTANT Ordering Physician: Amanda Izaguirre FNPResults: 1Nega tive Date of Service: 11/23/23Follow Up: 1 Year From Orig inal Mammogram Procedure(s): MM tomosynthesis screening BI Accession Number(s): [id number] cc: [facility] COSTUMER ASSISTANT EXAMINATION: MM SCREENING DIGITAL BREAST TOMOSYNTHESIS, BILATERAL CLINICAL INFORMATION: Screening. Asymptomatic. COMPARISON: Mammography: This is a baseline study. TECHNIQUE: Digital breast tomosynthesis is performed in both the craniocaudal and mediolateral oblique views along with computer-aided detection (CAD). Synthesized 2D images are generated from the tomosynthesis. FINDINGS: The breasts are extremely dense, which lowers the sensitivity of mammography (ACR BI-RADS breast composition Category d). There are no significant masses, abnormal calcifications, or other abnormalities. MM/MM tomosynthesis screening BI IMPRESSION: No mammographic evidence of malignancy. ASSESSMENT: BI-RADS BI-RADS 1 - Negative RECOMMENDATION: Routine annual mammography screening. 1 year F/U This examination should not preclude the clinical evaluation of a suspicious palpable abnormality. This patient's information was entered into a reminder system with a target due date for their next mammogram. Dictated By: Neli Benito MD Signed By: <Electronically signed by Neli Benito MD in OV> 12/15/23 1822 DD/ 1605 TD/TT: Appeals Court Associate Justice: [facility] COSTUMER ASSISTANT IMG BI PROCEDURES Edited Resu lt - Final * THINPREP TIS PAP AND HPV mRNA E6/E7, CT/NG, TRICH (07/11/2021 12:00 AM EST) Chlamydia trachomatis RNA, TMA, Urogenital NOT DETECTED NOT DETECTED [facility] Clinical Information: None given [facility] COMMENT SEE COMMENT [facility] Comment: The analytical performance characteristics of this assay, when used to test SurePath(TM) specimens have been determined by [employer]. The modifications have not been cleared or approved by the FDA. This assay has been validated pursuant to the CLIA regulations and is used for clinical purposes. ?? For additional information, please refer to [email or web address]://[email or web address]/faq/YCI654 (This link is being provided for information/ educational purposes only.) ?? COMMENT SEE COMMENT [facility] Comment: EXPLANATORY NOTE: ? The Pap is a screening test for cervical cancer. It is ?? not a diagnostic test and is subject to false negative ?? and false positive results. It is most reliable when a ?? satisfactory sample, regularly obtained, is submitted ?? with relevant clinical findings and history, and when ?? the Pap result is evaluated along with historic and ?? current clinical information. ?? COMMENT: This Pap test has been evaluated with computer assisted technology. [facility] Coiler Operator: SEE COMMENT [facility] Comment: GSG, CT(ASCP) CT screening location: [address] ??[id number] HPV nRNA E6/E7 Not Detected Not Detected [facility] Comment: Methodology: Spray Painting Machine Operator-Mediated Amplification This assay detects E6/E7 viral messenger RNA (mRNA) from 14 high-risk HPV types (16,18,31,33,35,39,45,51,52,56,58,59,66,68). ? The analytical performance characteristics of this assay have been determined by [employer]. The modifications have not been cleared or approved by the FDA. This assay has been validated pursuant to the CLIA regulations and is used for clinical purposes. ?? For additional information, please refer to http://[employer] ([email or web address]).Eyepic/faq/AAT654r3 (This link if provided for information/ educational purposes only.) Interpretation/Re sult: Negative for intraepithelial lesion or malignancy. [facility] LMP: NONE GIVEN [facility] Neisseria gonorrhoeae RNA, TMA, Urogenital NOT DETECTED NOT DETECTED [facility] Prev. BX: NONE GIVEN [facility] Prev. PAP: NONE GIVEN [facility] SOURCE: None given [facility] Statement Of Adequacy: SEE COMMENT [facility] Comment: Satisfactory for evaluation. Endocervical/transformation zone component present. Trichomonas vaginalis, QL, TMA, PAP Vial NOT DETECTED NOT DETECTED [facility] Comment: The analytical performance characteristics of this assay have been determined by [employer]. The modifications have not been cleared or approved by the FDA. This assay has been validated pursuant to the CLIA regulations and is used for clinical purposes. ?? For additional information, please refer to http://[employer] ([email or web address]).Eyepic/ faq/Trichomonastma (This link is being provided for information/ educational purposes only.) ?? 07/11/2021 Jossy Cisneros NATUROPATH LAB PATHOLOGY ORDERABLES Final Result [facility] [address] [place] [address], from Last 3 Months or Most Recently Relevant to Health Maintenance Insurance (Front) [place], [place] [employer] [address] (Front) [place] [address] (Front) [place] [address] (Front) [place] [address] Care Teams Occupational Therapy Teacher Relationship Specialty Start Date End Date Amanda Izaguirre FNP [address] [place] [address] PCP - General Family Medicine 12/26/21
--- OUTSIDE RECORDS SUMMARY | 2024-06-17 09:17 | XMS_ITS | Encounter Summary ---
Author Organization [employer] Address [address] [place] [address] Care Team Providers Care Housekeeping/Laundry Supervisor Name Role Phone [facility] Primary Care Provider [phone] Reason for Visit * Reason Onset Date Comments Results 01/16/2023 Encounter Details Date Type Department Care Team ([facility] Contact Info) Description 01/16/2023 Telephone [facility] [address] [place] [address] [facility] [address] [place] [address] Results Social History Tobacco Use Types Packs/Day Years Used Date Smoking Tobacco: Every Day Cigarettes 0.5 23 Passive Smoke Exposure: Current Smokeless Tobacco: Never Alcohol Use Standard Drinks/Week Comments Not Currently 0 (1 standard drink = 0.6 oz pur e alcohol) Depression Answer Date Recorded Patient Health Questionnaire-9 Score 0 09/23/2022 Depression Answer Date Recorded Patient Health Questionnaire-2 Score 0 09/23/2022 Comments Unknown Sex and Gender Information Value Date Recorded Sex Assigned at Female 03/03/2022 10:16 AM EDT Legal Sex Female 10:16 AM EDT Gender Identity Female 03/03/2022 10:16 AM EDT Sexual Orientation Straight 03/03/2022 10 :16 AM EDT documented as of this encounter Miscellaneous Notes * Telephone Encounter - Dodie Ceferino - 01/16/2023 10:40 AM EDT Tc from pt requesting a call in regards to lab results. Please contact pt at [phone] documented in this encounter Plan of Treatment Upcoming Encounters Date Type Department Care Team (Late st Contact Info) Description 06/24/2024 9:15 AM EST Office Visit [facility] [address] [place] [address] Amanda Izaguirre FNP [address] [place] [address] documented as of this encounter Visit Diagnoses Not on filedocumented in this encounter Additional Health Concerns Assessment Noted Time PHQ-9 Depression Total Score: 0 09/24/19 23 11:20 AM EDT documented as of this encounter Care Teams Housekeeping/Laundry Supervisor Relationship Specialty Start Date End Date Amanda Izaguirre FNP [address] [place] [address] PCP - General Family Medicine 12/26/21 documented as of this encounter
== END 2024-06-17 09:23 | disposition home or self-care (01) ==
PROVIDERS: PCP Registered Nurse
DX: G56.03 Carpal tunnel syndrome, bilateral upper limbs (principal)
CPT/HCPCS: 99214

== ENCOUNTER → 2024-06-17 08:54 | Outpatient (BNVA) | payer MEDICAID, SELFPAY | PROVIDERS: PCP Registered Nurse | DX: G56.03 Carpal tunnel syndrome, bilateral upper limbs (principal) | CPT/HCPCS: 99212 ==

== ENCOUNTER 2024-07-06 17:50 | Outpatient (REF) | payer MEDICAID, SELFPAY ==
--- OUTSIDE RECORDS SUMMARY | 2024-07-07 15:17 | XMS_ITS | Encounter Summary ---
Author Organization [employer] Address [address] [place] [address] Care Team Providers Care Global Professional Name Role Phone Dmitriy [facility] Primary Care Provider [phone] Encounter Details Date Type Department Care Team (Latest Contact Info) Description 07/06/2024 Travel Social History Tobacco Use Types Packs/Day Years Used Date Smoking Tobacco: Every Day Cigarettes 0.5 23 Passive Smoke Exposure: Current Smokeless Tobacco: Never Alcohol Use Standard Drinks/Week Comments Yes 0 (1 standard drink = 0.6 oz pur e alcohol) Depression Answer Date Recorded Patient Health Questionnaire-9 Score 11 06/24/2024 Patient Health Questionnaire-9 Score 11 06/24/2024 Last PHQ-9: Questionnaire Data Not on file 0 06/24/2024 Housing Stability Answer Date Recorded What is your housing situation today? I have choco solomon 06/24/[address] you li ve. Do you have problems with any of the following? None of the above 06/24/2024 Food Insecurity Answer Date Recorded Within the past 12 months, y ou worried that your food would run out before you got money to buy more: Never True 06/24/2024 Within the past 12 months,th e food you bought just didn't last and you didn't have enough money to get more: Never True Transportation Answer Date Recorded In the past 12 months, has l ack of transportation kept you from medical appts, meetings, work or from getting things needed for daily living? No 06/24/2024 Utilities Answer Date Recorded In the past 12 months, has t he electric, gas, oil or water company threatened to shut off services in your home? No 06/24/2024 Depression Answer Date Recorded Patient Health Questionnaire-2 Score 2 06/24/2024 Internet Access Answer Date Recorded Internet Access Q1 Yes 06/24/2024 Internet Access Q2 Not on file 06/24/2024 Comments Unknown Sex and Gender Information Value Date Recorded Sex Assigned at Female 03/03/2022 10:16 AM EDT Legal Sex Female 10:16 AM EDT Gender Identity Female 03/03/2022 10:16 AM EDT Sexual Orientation Straight 03/03/2022 10 :16 AM EDT documented as of this encounter Plan of Treatment Not on file documented as of this encounter Visit Diagnoses Not on filedocumented in this encounter Additional Health Concerns Assessment Noted Time PHQ-9 Depression Total Score: 11 025 9:12 AM EST documented as of this encounter Care Teams Global Professional Relationship Specialty Start Date End Date Amanda Izaguirre FNP [address] [place] [id number] PCP - General Family Medicine 12/26/21 documented as of this encounter
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
--- OUTSIDE RECORDS SUMMARY | 2024-07-07 15:17 | XMS_ITS | Clinical Summary ---
Author Organization [employer] Address [address] 7[address] [place] [address] Care Team Providers Care Outer Diameter Grinder Tool Name Role Phone Amanda Izaguirre [facility] Primary Care Provider [phone] Allergies No known active allergies Medications * This document contains information received from the source organization and may not represent a complete record from that organization. clonazePAM (KlonoPIN) 1 MG tablet Take 1 tablet (1 mg) by mouth 2 times daily for 28 days. As needed 56 tablet 08/29/19 23 Active diphenhydrAMI NE (BENADryl) 25 MG tabletIndicat ions:Bug bite, initial encounter Take 1 tablet (25 mg) by mouth every 6 (six) hours if needed for itching. 30 tablet 1 11/04/19 23 Active cetirizine (ZyrTEC) 10 MG tabletIndicat ions:Seasonal allergies Take 1 tablet (10 mg) by mouth Once per day. 30 tablet 5 11/11/19 24 Active Ketotifen Fumarate 0.035 % solutionIndic ations:Season al allergies Administer 1 drop into affected eye(s) Once per day. 5 mL 1 11/11/19 24 Active Additional Information Patient not taking.Reported on 06/24/2024 QUEtiapine (SEROquel) 50 MG tabletIndicat ions:Mood disorder (CMS/HCC) Take 2 tablets (100 mg) by mouth at bedtime. 60 tablet 1 06/24/19 25 Active ibuprofen 600 MG tabletIndicat ions:Polyarth ralgia Take 1 tablet (600 mg) by mouth every 6 (six) hours if needed for mild pain. 30 tablet 1 06/24/19 25 Active acetaminophen (Tylenol Extra Strength) 500 MG tabletIndicat ions:Polyarth ralgia Take 2 tablets (1,000 mg) by mouth every 6 (six) hours if needed for mild pain. 30 tablet 1 06/24/19 25 Active triamcinolone (Kenalog) 0.1 % ointmentIndic ations:Other eczema Apply topically 2 times daily. 15 g 06/24/19 25 Active doxycycline (Vibra-Tabs) 100 MG tabletIndicat ions:Injury to fingernail of right hand, initial encounter Take 1 tablet (100 mg) by mouth 2 times daily for 5 days. Take with a full glass of water and do not lie down for at least 30 minutes after. 10 tablet 07/05/19 25 025 Active gabapentin (Neurontin) 300 MG capsule Take 300 mg by mouth 3 times daily. 10/23/19 22 025 Discontinued amitriptyline (Elavil) 10 MG tabletIndicat ions:Fibromya lgia Take 1 tablet (10 mg) by mouth at bedtime. 30 tablet 1 08/07/19 24 025 Discontinued acetaminophen (Tylenol Extra Strength) 500 MG tabletIndicat ions:Polyarth ralgia Take 2 tablets (1,000 mg) by mouth every 6 (six) hours if needed for mild pain. 30 tablet 1 08/24/19 24 025 Discontinued(Re order (will not trigger notification to Pharmacy)) ibuprofen 600 MG tabletIndicat ions:Polyarth ralgia Take 1 tablet (600 mg) by mouth every 6 (six) hours if needed for mild pain. 30 tablet 1 08/24/19 24 025 Discontinued(Re order (will not trigger notification to Pharmacy)) Diclofenac Sodium 1 % gelIndication s:Polyarthral xena Apply topically to affected areas twice daily 150 g 09/18/19 24 025 Discontinued capsaicin (Zostrix) 0.025 % creamIndicati ons:Polyarthr algia Apply topically 2 times daily. 56.6 g 09/18/19 24 025 Discontinued QUEtiapine (SEROquel) 50 MG tabletIndicat ions:Mood disorder (CMS/HCC) Take 1 tablet (50 mg) by mouth at bedtime. OK to increase to 2 tablets (100mg) if tolerating well 60 tablet 1 11/11/19 24 025 Discontinued(Re order (will not trigger notification to Pharmacy)) Active Problems Problem Noted Date Diagnosed Date [...] for Behavioral Health Integration Plan External OP BH therapy referral and OP psychiatry Referral Patient Self Plan Patient to utilize skills provided in intervention , Patient to reach out to [facility] team as needed, Patient to engage in OP BH therapy , and Patient to reach out to [facility] as needed. Advised booking sooner appointments with [facility]/intake for psychopharmacology and OP individual therapy. Primary insomnia 05/12/2022 Underweight 05/12/2022 Lumbar back pain 12/28/2017 Neck pain 12/28/2017 Mood disorder 03/29/2014 Overview (01/20/2023): ?? Clonazepam PRN 2-3x/month ?? BH referral placed 11/2022 Assessment & Plan (09/04/2023 [...] for Behavioral Health Integration Plan External OP BH therapy referral and OP psychiatry Referral Patient Self Plan Patient to utilize skills provided in intervention , Patient to reach out to [facility] team as needed, Patient to engage in OP BH therapy , and Patient to reach out to [facility] as needed. Advised booking sooner appointments with [facility]/intake for psychopharmacology and OP individual therapy. Encounters Date Type Department Care Team Description 07/06/2024 5:20 PM EST Office Visit [facility] [address] [place] [phone] Lillie Montoya FNP Injury to fingernail of right hand, subsequent encounter (Primary Dx); Cellulitis of finger of right hand 07/06/2024 Travel 07/06/2024 Telephone [facility] [address] [place] [address] Amanda Izaguirre FNP Nurse Triage 07/04/2024 5:00 PM EST Office Visit [facility] [address] [place] [address] Jocy Girard NP Injury to fingernail of right hand, initial encounter (Primary Dx) 06/24/2024 9:15 AM EST Office Visit [facility] [address] [place] [address] Amanda Izaguirre FNP Mood disorder (CMS/HCC) (Primary Dx); Other eczema; Polyarthralgia; Encounter for immunization 06/24/2024 Travel 06/23/2024 Telephone [facility] [address] [place] [address] Amanda Izaguirre FNP chart prep from Last 3 Months Immunizations Name Administration Dates Next Due Hep B, adult 06/13/2020,07/19/2019 Influenza injectable quadriv alent IIV4 with preservative 07/05/2019 Influenza, Split (incl. purified surface antigen ) 06/13/2013 Pneumococcal Polysaccharide PPSV23 06/13/2013 Pneumococcal, Unspecified 06/13/2013 Tdap 06/24/2024,06/13/2013 Social History Tobacco Use Types Packs/Day Years Used Date Smoking Tobacco: Every Day Cigarettes 0.5 23 Passive Smoke Exposure: Current Smokeless Tobacco: Never Tobacco Cessation:Ready to Q uit: Not Asked; Counseling Given: Not Answered Alcohol Use Standard Drinks/Week Comments Yes 0 (1 standard drink = 0.6 oz pur e alcohol) Depression Answer Date Recorded Patient Health Questionnaire-9 Score 11 06/24/2024 Patient Health Questionnaire-9 Score 11 06/24/2024 Last PHQ-9: Questionnaire Data Not on file 0 06/24/2024 Housing Stability Answer Date Recorded What is your housing situation today? I have choco sing 06/24/[address] you li [...] 36.2 ??C (97.1 ??F) 07/06/2024 5:30 PM ES T Respiratory Rate 16 07/06/2024 5:30 PM EST Oxygen Saturation 99% 07/06/2024 5:30 PM EST Inhaled Oxygen Concentration - - Weight 47 kg (103 lb 9.6 oz) 07/06/2024 5:30 PM EST Height 157.5 cm (5' 2 ) 07/06/2024 5:30 PM EST Body Mass Index 18.95 07/06/2024 5:30 PM EST Plan of Treatment Health Maintenance Due Date Last Done Comments HIV Screening 1985 Lipid Panel 1983 Family Planning (PISQ) 1998 Hepatitis C Screening 2001 Pneumococcal Vaccine: Pediatrics (0 to 5 Years) and At-Risk Patients (6 to 49) Years) (2 of 2 - PCV) 06/13/2014 06/13/2013, 06/13/2013 Hepatitis B Vaccines (3 of 3 - 19+ 3-dose series) 08/08/2020 06/13/2020, 07/19/2019 COVID-19 Vaccine (3 - 2023-2 5 season) 2024 09/21/2020, 08/31/2020 Influenza Vaccine (#1) 2024 , 06/13/2013 Pap Smear 07/11/2024 07/11/2021 Depression Monitoring (PHQ-9) 12/22/2024, 06/24/2024 Alcohol/Substance Use Screening 06/24/2025 06/24/2024 Depression Screening 06/24/2025 06/24/2024, 06/24/2024 SDOH Screening 06/24/2025 06/24/2024 Tobacco Screening 07/04/2025 07/04/2024 Mammogram 11/22/2025 11/23/2023 Cervical Cancer Screening 07/11/2026 HPV/Cotest 07/11/2026 07/11/2021 Zoster Vaccines (1 of 2) 2033 DTaP/Tdap/Td Vaccines (3 - T d or Tdap) 06/24/2034 06/24/2024, 06/13/2013 RSV Patients and Patients Aged 60 years [...] EDT Narrative 12/15/2023 6:25 PM EDT ? [facility] ? [address] ?[place] [address] ? Mammography Report ? Signed ? Patient: French,Chelsy ?MR#: [id number] ?? [id number] ? : 1985 ?Acct:[id number] ? Age/Sex: 38 / F ?ADM Date: 11/22/ ? Loc: HO.MAMMO ? Attending Dr: Amanda Dmitriy VAMP SEAMER ? Ordering Physician: Dmitriy,Amanda VAMP SEAMER ?Results: 1Nega ?? tive ? Date of Service: 11/22/ ?Follow Up: 1 Year From Orig ?? inal Mammogram ? Procedure(s): MM tomosynthesis screening BI ?? Accession Number(s): [id number] ? cc: Dmitriy,Amanda VAMP SEAMER ? EXAMINATION: ?? MM SCREENING DIGITAL BREAST [...] 1822 ? DD/ 1605 ? TD/TT: ? Casework Manager: ? Procedure Note Vinicius, Image - 12/15/2023 [facility] [address] [place] [address] Dr. White, CARRIE [address] Mammography Report Signed Patient: Chelsy BraswellMR#: [id number] : 1985Acct:[id number] Age/Sex: 38 / FADM Date: 11/23/23 Loc: [facility] Attending Dr: Amanda Izaguirre VAMP SEAMER Ordering Physician: Amanda Izaguirre FNPResults: 1Nega tive Date of Service: 11/23/23Follow Up: 1 Year From Orig inal Mammogram Procedure(s): MM tomosynthesis screening BI Accession Number(s): [id number] cc: [place] VAMP SEAMER EXAMINATION: MM SCREENING DIGITAL BREAST TOMOSYNTHESIS, BILATERAL [...] in OV> 12/15/23 1822 DD/ 1605 TD/TT: Casework Manager: [facility] VAMP SEAMER IMG BI PROCEDURES Edited Resu lt - Final * THINPREP TIS PAP AND HPV mRNA E6/E7, CT/NG, TRICH (07/11/2021 12:00 AM EST) Chlamydia trachomatis RNA, TMA, Urogenital NOT DETECTED NOT DETECTED [facility] Clinical Information: None given [facility] COMMENT SEE COMMENT [facility] Comment: The analytical performance characteristics of this assay, when used to test SurePath(TM) specimens have been determined by [employer]. The modifications have not been cleared or approved by the FDA. This assay has been validated pursuant to the CLIA regulations and is used for clinical purposes. ?? For additional information, please refer to https://education.[employer]/faq/JHC634 (This link is being provided for information/ [...] has been evaluated with computer assisted technology. [facility] Steel Checker: SEE COMMENT [facility] Comment: GSG, CT(ASCP) CT screening location: [address] ??[address] HPV nRNA E6/E7 Not Detected Not Detected [facility] Comment: Methodology: Oil Expeller-Mediated Amplification This assay detects E6/E7 viral messenger RNA (mRNA) from 14 high-risk HPV types (16,18,31,33,35,39,45,51,52,56,58,59,66,68). ? The analytical performance characteristics of this assay have been determined by [facility]. The modifications have not been cleared or approved by the FDA. This assay has been validated pursuant to the CLIA regulations and is used for clinical purposes. ?? For additional information, please refer to http://[employer]/faq/IPH754q9 (This link if provided for information/ educational [...] TMA, PAP Vial NOT DETECTED NOT DETECTED [facility] Comment: The analytical performance characteristics of this assay have been determined by [facility]. The modifications have not been cleared or approved by the FDA. This assay has been validated pursuant to the CLIA regulations and is used for clinical purposes. ?? For additional information, please refer to http://education.[employer]/ faq/Trichomonastma (This link is being provided for information/ educational purposes only.) ?? 07/11/2021 Jossy Cisneros PRODUCTION CONTROL PEGBOARD CLERK LAB PATHOLOGY ORDERABLES Final Result [facility] [address] [place] [address], from Last 3 Months or Most Recently Relevant to Health Maintenance Insurance (Front) [place] [address] [employer] [address] (Front) [place] [address] (Front) [place] [address] (Front) [place] [address] Care Teams Outer Diameter Grinder Tool Relationship Specialty Start Date End Date Amanda Izaguirre FNP [address] [place] [phone] PCP - General Family Medicine 12/26/21
--- OUTSIDE RECORDS SUMMARY | 2024-07-07 15:17 | XMS_ITS | Encounter Summary ---
Author Organization [employer] Address [address] [facility] 7t [place] [address] Care Team Providers Care Air Pollution Analyst Name Role Phone [facility] Primary Care Provider [phone] Reason for Visit * Reason Onset Date Comments Results 01/16/2023 Encounter Details Date Type Department Care Team ([facility] Contact Info) Description 01/16/2023 Telephone [facility] [address] [place] [address] [facility] [address] [place] [address] Results Social History Tobacco Use Types Packs/Day [...] to lab results. Please contact pt at [phone] documented in this encounter Plan of Treatment Not on file documented as of this encounter Visit Diagnoses Not on filedocumented in this encounter Additional Health Concerns Assessment Noted Time PHQ-9 Depression Total Score: 0 09/24/19 23 11:20 AM EDT documented as of this encounter Care Teams Air Pollution Analyst Relationship Specialty Start Date End Date Amanda Izaguirre FNP [address] [place] [address] PCP - General Family Medicine 12/26/21 documented as of this encounter
--- OUTSIDE RECORDS SUMMARY | 2024-07-07 15:18 | XMS_ITS | Encounter Summary ---
Author Organization [employer] Address [address] [facility] 7t [place] [address] Care Team Providers Care Registered Land Surveyor Name Role Phone [facility] Primary Care Provider [phone] Reason for Visit * Reason Comments Follow-up Encounter Details Date Type Department Care Team ([facility] Contact Info) Description 06/24/2024 9:15 AM EST Office Visit [facility] [address] [place] [address] [facility] [address] [place] [address] Mood disorder (CMS/HCC) (Primary Dx); Other eczema; Polyarthralgia; Encounter for immunization Social History Tobacco Use Types Packs/Day Years [...] Sign Reading Time Taken Comments Blood Pressure 110/74 06/24/2024 9:09 AM EST Pulse 78 06/24/2024 9:09 AM EST Temperature 36.3 ??C (97.3 ??F) 06/24/2024 9:09 AM ES T Respiratory Rate 17 06/24/2024 9:09 AM EST Oxygen Saturation - - Inhaled Oxygen Concentration - - Weight 47.3 kg (104 lb 6 oz) 06/24/2024 9:09 AM EST Height 157.5 cm (5' 2 ) 06/24/2024 9:09 AM EST Body Mass Index 19.09 06/24/2024 9:09 AM EST documented in this encounter Progress Notes * [facility] - 06/24/2024 9:15 AM EST SUBJECTIVE: Chelsy Braswell is a 39 y.o. year old female who presents for anxiety follow up . Denies recent illness, injury, or hospitalization. Acute Concerns: Persistent difficulty sleeping-taking seroquel very other day with minimal improvement. Was previously referred to behavioral health and has contact information for outpatient therapist. She needs tocontact to establish care. Increased rest at home as she is now taking care of her 6-year-old grandson. Patient with history of bipolar disorder. She is not interested in daily maintenance medicationbut has found Seroquel immediate release helpful for sleep. No SI, self-harm Eczema on hands; worse during winter months Social History Social History Narrative Current living environment: , daughter (age 20), grandson (age 4), son (17). Other son livesalone. Dog Children: 3 Employment/Education: [employer] WORK[employer] Tobacco Use: 7-10 cigarettes per day/declines cessation at this time Alcohol Use: Occasionally Marijuana Use: Smoking Other drug use: None Patient Active Problem List Diagnosis Carpal tunnel syndrome Lumbar back pain Mixed anxiety and depressive disorder Mood disorder (CMS/HCC) Neck pain Primary insomnia Underweight Healthcare maintenance Polyarthralgia Past Surgical History: Procedure Laterality Date CARPAL TUNNEL RELEASE Right TUBAL LIGATION Bilateral No family history on file. Review of Systems Constitutional: Negative for fever. HENT: Negative. Respiratory: Negative for shortness of breath. Cardiovascular: Negative for chest pain. Gastrointestinal: Negative for abdominal pain. Neurological: Negative for dizziness and weakness. Psychiatric/Behavioral: Positive for dysphoric mood and sleep disturbance. Negative for self-injuryand suicidal ideas. The patient is nervous/anxious. OBJECTIVE: Vitals: 06/24/24 0909 BP: 110/74 Pulse: 78 Resp: 17 Temp: 97.3 ??F (36.3 ??C) Physical Exam Constitutional: General: She is not in acute distress. Appearance: Normal appearance. HENT: Head: Normocephalic and atraumatic. Right Ear: External ear normal. Left Ear: External ear normal. Nose: Nose normal. Eyes: Conjunctiva/sclera: Conjunctivae normal. Cardiovascular: Rate and Rhythm: Normal rate and regular rhythm. Heart sounds: Normal heart sounds. Pulmonary: Effort: Pulmonary effort is normal. Breath sounds: Normal breath sounds. Skin: General: Skin is warm and dry. Neurological: General: No focal deficit present. Mental Status: She is alert and oriented to person, place, and time. Psychiatric: Mood and Affect: Mood normal. Behavior: Behavior normal. ASSESSMENT/PLAN Mood disorder/insomnia -Increase nightly Seroquel to 100 mg - Follow-up as scheduled with outpatient therapist - Contact HC if sx worsen or experiencing thoughts of SI or self harm. Pt has N crisis contact information Eczema -Kenalog twice daily - Moisturize after handwashing - Contact if symptoms worsen or do not improve Diagnosis Plan 1. Mood disorder (CMS/HCC) QUEtiapine (SEROquel) 50 MG tablet 2. Other eczema triamcinolone (Kenalog) 0.1 % ointment 3. Polyarthralgia ibuprofen 600 MG tablet acetaminophen (Tylenol Extra Strength) 500 MG tablet 4. Encounter for immunization TDAP VACCINE 7 yrs + Follow Up: 6 months, PE Current Outpatient Medications on File Prior to Visit Medication Sig Dispense Refill acetaminophen (Tylenol Extra Strength) 500 MG tablet Take 2 tablets (1,000 mg) by mouth every 6 (six) hours if needed for mild pain. (Patient not taking: Reported on 06/24/2024) 30 tablet 1 amitriptyline (Elavil) 10 MG tablet Take 1 tablet (10 mg) by mouth at bedtime. 30 tablet 1 capsaicin (Zostrix) 0.025 % cream Apply topically 2 times daily. (Patient not taking: Reported on 06/24/2024) 56.6 g 1 cetirizine (ZyrTEC) 10 MG tablet Take 1 tablet (10 mg) by mouth Once per day. 30 tablet 5 clonazePAM (KlonoPIN) 1 MG tablet Take 1 tablet (1 mg) by mouth 2 times daily for 28 days. As needed 56 tablet 0 Diclofenac Sodium 1 % gel Apply topically to affected areas twice daily (Patient not taking: Reported on 06/24/2024) 150 g 1 diphenhydrAMINE (BENADryl) 25 MG tablet Take 1 tablet (25 mg) by mouth every 6 (six) hours if needed for itching. 30 tablet 1 gabapentin (Neurontin) 300 MG capsule Take 300 mg by mouth 3 times daily. (Patient not taking: Reported on 06/24/2024) ibuprofen 600 MG tablet Take 1 tablet (600 mg) by mouth every 6 (six) hours if needed for mild pain. (Patient not taking: Reported on 06/24/2024) 30 tablet 1 Ketotifen Fumarate 0.035 % solution Administer 1 drop into affected eye(s) Once per day. (Patient not taking: Reported on 06/24/2024) 5 mL 1 QUEtiapine (SEROquel) 50 MG tablet Take 1 tablet (50 mg) by mouth at bedtime. OK to increase to 2 tablets (100mg) if tolerating well (Patient not taking: Reported on 06/24/2024) 60 tablet 1 No current facility-administered medications on file prior to visit. documented in this encounter Plan of Treatment Not on file documented as of this encounter Visit Diagnoses Diagnosis Mood disorder (CMS/[facility])- Primary Unspecified episodic mood disorder Other eczema Polyarthralgia Pain in joint, multiple sites Encounter for immunization documented in this encounter Additional Health Concerns Assessment Noted Time PHQ-9 Depression Total Score: 11 025 9:12 AM EST documented as of this encounter Care Teams Registered Land Surveyor Relationship Specialty Start Date End Date Amanda Izaguirre FNP [address] [place] [id number] PCP - General Family Medicine 12/26/21 documented as of this encounter
--- OUTSIDE RECORDS SUMMARY | 2024-07-07 15:18 | XMS_ITS | Encounter Summary ---
Author Organization [employer] Address [address] [facility] 7[address] [place] [address] Care Team Providers Care Welt Cutter Name Role Phone [facility] Primary Care Provider [phone] Reason for Visit * Reason Onset Date Comments chart prep 06/23/2024 Encounter Details Date Type Department Care Team ([facility] st Contact Info) Description 06/23/2024 Telephone [facility] [address] [place], [place] [phone] [facility] [address] [place], [place] [phone] chart prep Social History Tobacco Use Types Packs/Day Years [...] encounter Miscellaneous Notes * Telephone Encounter - Tracie Vo MA - 06/23/2024 1:19 PM EST Chart Prep Labs: not applicable Images: not applicable Vaccines due: yes Referrals: complete Overdue care gaps: Sbirt, SDOH, PHQ-9, Oral Health documented in this encounter Plan of Treatment Not on file documented as of this encounter Visit Diagnoses Not on filedocumented in this encounter Additional Health Concerns Assessment Noted Time PHQ-9 Depression Total Score: 9 09/01/19 24 1:17 PM EDT documented as of this encounter Care Teams Welt Cutter Relationship Specialty Start Date End Date Amanda Izaguirre FNP [address] [place] [id number] PCP - General Family Medicine 12/26/21 documented as of this encounter
--- OUTSIDE RECORDS SUMMARY | 2024-07-07 15:18 | XMS_ITS | Encounter Summary ---
Author Organization [employer] Address [address] [facility] [address] [place] [address] Care Team Providers Care Health Information Technician Name Role Phone [facility] Primary Care Provider [phone] Encounter Details Date Type Department Care Team (Latest Contact Info) Description 06/24/2024 Travel Social History Tobacco Use Types Packs/Day [...] as of this encounter Care Teams Health Information Technician Relationship Specialty Start Date End Date Amanda Izaguirre FNP [address] [place] [id number] PCP - General Family Medicine 12/26/21 documented as of this encounter
--- OUTSIDE RECORDS SUMMARY | 2024-07-07 15:18 | XMS_ITS | Encounter Summary ---
Author Organization [employer] Address [address] [facility] 7t [place] [address] Care Team Providers Care General Labor Forklift Operator Name Role Phone [facility] Primary Care Provider [phone] Reason for Visit * Reason Onset Date Comments Nurse Triage 07/06/2024 Encounter Details Date Type Department Care Team ([facility] st Contact Info) Description 07/06/2024 Telephone [facility] [address] [place], [place] [phone] [facility] [address] [place], [place] [phone] Nurse Triage Social History Tobacco Use Types Packs/Day Years [...] encounter Miscellaneous Notes * Telephone Encounter - Marisabel Calderon RN - 07/06/2024 9:55 AM EST Call returned to Chelsy Braswell to triage below. Per pt having discharge and swelling. Per pt did hit nail again. Nail is lifted more. Pt endorses having pain at first joint under nail bed. Having warmth to site as well. Pt has had 2 doses of abx rx from 07/04/24 visit. Pt offered appt today withBlue team provider. Pt at work until 3pm. Agrees to seek [facility] again for exam Reviewed [facility] operating h ours and that wait times vary. Reviewed home care advise, ER precautions and reasons to call back. Protocol Used: Finger Injury (Adult) Protocol-Based Disposition: See in Office or Video Visit Today Positive Triage Question: * Finger joint can't be opened (straightened) or closed (bent) completely * All higher-acuity triage questions were negative Care Advice Discussed: * Reassurance and Education - Bruised Fingernail (Subungual Hematoma) * Reasons To Call Back - Pain becomes severe - You become worse * Telephone Encounter - Erika Bazan - 07/06/2024 9:07 AM EST Symptom: Finger Injury (pus discharge, swollen.) Outcome: Schedule a same-day appointment or talk to a nurse or provider today Reason: Caller denied all higher acuity questions The caller accepted this outcome. [phone] *seen before at [facility] 07/04. documented in this encounter Plan of Treatment Not on file documented as of this encounter Visit Diagnoses Not on filedocumented in this encounter Additional Health Concerns Assessment Noted Time PHQ-9 Depression Total Score: 11 025 9:12 AM EST documented as of this encounter Care Teams General Labor Forklift Operator Relationship Specialty Start Date End Date Amanda Izaguirre FNP [address] [place] [id number] PCP - General Family Medicine 12/26/21 documented as of this encounter
== END 2024-07-06 17:51 | disposition home or self-care (01) ==
LOC: HO.LNP 17:50
PROVIDERS: Visit Provider Registered Nurse
DX: L03.011 Cellulitis of right finger (principal)
CPT/HCPCS: 87070; 87147; 87205

== ENCOUNTER 2024-09-05 10:55 | Day surgery (SDC) | payer MEDICAID, SELFPAY ==
[2024-09-05 13:08] VITALS: BMI 19.1
[2024-09-05 13:10] VITALS: BP 95/49; PULSE 75; RESP 18; TEMP 36.9; O2SAT 100
--- NOTE | 2024-09-05 15:20 | P.OP_ITS ---
Operative Note Operative Note Date of Service: 09/05/24 Narrative: Preop diagnosis: 1. Right recurrent Carpal tunnel syndrome Postop diagnosis: same Procedure: 1. Right recurrent Carpal tunnel release Surgeon: Thea Cedeno MD Net Software Architect: None Anesthesia: local block using 1% lidocaine with epinephrine Findings: Thickened transverse carpal ligament. EBL: Less than 5 mL Specimens: None Complications: None Disposition: Brought to recovery room in stable condition Plan: Follow-up for 10-14 days for wound check and suture removal Indications: The patient is 39 years old, with recurrent right carpal tunnel syndrome that has been unresponsive to nonoperative management. The risks and benefits of operative treatment including but not limited to risk of damage to blood vessels, nerves, tendons, infection, persistent pain, persistent symptoms, or possible need for additional surgery were discussed with the patient and the patient wishes to proceed with surgery. Procedure: Once consent was obtained a local block was performed using a combination of 1% lidocaine with epinephrine. The patient was then brought back to the operating suite and placed on the operative table in supine position. The right upper extremity was prepped and draped in a standard surgical fashion. Once assured that we had a good block, a 2.0 cm longitudinal incision was made centered over the carpal tunnel and extended proximally about a cm in a zigzag fashion.. The incision was made through the skin to the subcutaneous tissues using a #15 blade. Dissection was made down to the level of the palmaris longus tendon in the volar forearm fascia at the proximal end of the incision. I made a longitudinal incision in the volar forearm fascia, identifying the median nerve. With the median nerve visualized and protected, I then made a longitudinal incision through the scar tissue over the carpal tunnel 1st using a 15. Blade then using tenotomy and iris scissors under direct visualization. The median nerve was protected throughout the case. Once satisfied with our carpal tunnel release the wound was copiously irrigated with normal saline and hemostasis was obtained with a brief period of local pressure. The skin edges were reapproximated with some 5.0 nylon suture material and a sterile dressing was applied. The patient appears to have tolerated the procedure well and with no complications. All digits were well vascularized at the conclusion of the case.
--- NOTE | 2024-09-05 15:20 | MHC.SHP ---
Pre-Procedural Eval Section A - 24 Hr Update-Section A only Date of Service: 09/05/24 The patient is an INPATIENT: No Changes since office visit: No Cold of Flu in the past 2 weeks, No New Medical Problems, No Changes in Medication and No Patient answered all questions The patient has been examined within 24 hours of the surgical procedure. The History & Physical has been completed within 30 days and I have reviewed it.: Yes Section B - Complete if H&P > 30 days Chief Complaint: Carpal tunnel syndrome, right upper limb Allergies: Allergies Allergy/AdvReac Type Severity Reaction Status Date / Time No Known Allergies Allergy Verified 06/17/24 09:05 Plan Diagnosis/Plan: Unchanged I have reviewed the history and physical and performed a pertinent physical examination on my patient. No changes have occurred unless specified. Time Spent With Patient Time: Total time managing care of this patient today ____ minutes.
== END 2024-09-05 16:42 | disposition home or self-care (01) ==
PROVIDERS: PCP Registered Nurse; Visit Provider Orthopaedic Surgery
PROC: (CPT 64721; principal; 2024-09-05 12:40)
DX: G56.01 Carpal tunnel syndrome, right upper limb (principal); Z98.890 Other specified postprocedural states; R20.0 Anesthesia of skin; R20.2 Paresthesia of skin; M79.641 Pain in right hand; F17.210 Nicotine dependence, cigarettes, uncomplicated
CPT/HCPCS: 64721; J0171; J2003

== ENCOUNTER → 2024-09-05 10:55 | Outpatient (BNV) | payer MEDICAID, SELFPAY | PROVIDERS: PCP Registered Nurse; Visit Provider Orthopaedic Surgery | DX: G56.01 Carpal tunnel syndrome, right upper limb (principal) | CPT/HCPCS: 64721 ==

== ENCOUNTER 2024-09-19 13:59 | Outpatient (AMB) | payer MEDICAID, SELFPAY ==
--- OUTSIDE RECORDS SUMMARY | 2024-09-19 14:04 | XMS_ITS | Encounter Summary ---
Author Organization [employer] Address [address] [facility] 7t [place] [address] Care Team Providers Care Investment Banker Name Role Phone [facility] Primary Care Provider [phone] Reason for Visit * Reason Onset Date Comments Results 01/16/2023 Encounter Details Date Type Department Care Team ([facility] Contact Info) Description 01/16/2023 Telephone [facility] [address] [place] [address] [facility] [address] [place] [address] Results Social History Tobacco Use Types Packs/Day [...] to lab results. Please contact pt at [phone] documented in this encounter Plan of Treatment Upcoming Encounters Date Type Department Care Team (Late st Contact Info) Description 12/12/2024 2:00 PM EDT Office Visit [facility] [address] [place] [address] Aamnda Izaguirre FNP [address] [place] [address] documented as of this encounter Visit Diagnoses Not on filedocumented in this encounter Additional Health Concerns Assessment Noted Time PHQ-9 Depression Total Score: 0 09/24/19 23 11:20 AM EDT documented as of this encounter Care Teams Investment Banker Relationship Specialty Start Date End Date Amanda Izaguirre FNP [address] [place] [address] PCP - General Family Medicine 12/26/21 documented as of this encounter
--- OUTSIDE RECORDS SUMMARY | 2024-09-19 14:04 | XMS_ITS | Clinical Summary ---
Author Organization [employer] Address [address] [facility] [address] [place] [address] Care Team Providers Care Component Prep Operator Name Role Phone Amanda Izaguirre [facility] Primary Care Provider [phone] Allergies No known active allergies Medications * [...] for itching. 30 tablet 1 3 Active cetirizine (ZyrTEC) 10 MG tabletIndicatio ns:Seasonal allergies Take 1 tablet (10 mg) by mouth Once per day. 30 tablet 5 4 Active Ketotifen Fumarate 0.035 % solutionIndicat ions:Seasonal allergies Administer 1 drop into affected eye(s) Once per day. 5 mL 1 4 Active Additional Information Patient not taking.Reported on 06/24/2024 QUEtiapine (SEROquel) 50 MG tabletIndicatio ns:Mood disorder (CMS/HCC) Take 2 tablets (100 mg) by mouth at bedtime. 60 tablet 1 5 Active ibuprofen 600 MG tabletIndicatio ns:Polyarthralg ia Take 1 tablet (600 mg) by mouth every 6 (six) hours if needed for mild pain. 30 tablet 1 5 Active acetaminophen (Tylenol Extra Strength) 500 MG tabletIndicatio ns:Polyarthralg ia Take 2 tablets (1,000 mg) by mouth every 6 (six) hours if needed for mild pain. 30 tablet 1 5 Active triamcinolone (Kenalog) 0.1 % ointmentIndicat ions:Other eczema Apply topically 2 times daily. 15 g 1 5 Active Active Problems Problem Noted Date Diagnosed [...] intervention , Patient to reach out to [facility] team as needed, Patient to engage in [...] intervention , Patient to reach out to [facility] team as needed, Patient to engage in OP therapy , and Patient to reach out to [facility] as needed. Advised booking sooner appointments with [facility] for psychopharmacology and OP individual therapy. Encounters Date Type Department Care Team Description 09/08/[address] [address] Amanda Izaguirre FNP recall 07/15/2024 Population Health Risk Score [facility] () Department [address] [id number] Provider, Population Health Generic 07/11/2024 Orders Only [facility] [address] [place], [place] [phone] Lillie Montoya FNP 07/08/2024 Telephone [facility] [address] [place] [phone] Maribel Barrientos NP Call to Lab 07/06/2024 5:20 PM EST Office Visit [facility] [address] [place] [phone] Lillie Montoya FNP Injury to fingernail of right hand, subsequent encounter (Primary Dx); Cellulitis of finger of right hand 07/06/2024 Travel 07/06/[address] [address] Amanda Izaguirre FNP Nurse Triage 07/04/2024 5:00 PM EST [facility] [address] [address] Jocy Girard NP Injury to fingernail of right hand, initial encounter (Primary Dx) 06/24/2024 9:15 AM EST Office Visit [address] [address] Amanda Izaguirre FNP Mood disorder (CMS/HCC) (Primary Dx); Other eczema; Polyarthralgia; Encounter for immunization 06/24/2024 Travel 06/23/[address] [address] Amanda Izaguirre FNP chart prep from Last 3 Months Immunizations Immunization Administration Dates Next Due Hep B, adult [...] 07/06/2024 5:30 PM EST Plan of Treatment Upcoming Encounters Date Type Department Care Team (Late st Contact Info) Description 12/12/2024 2:00 PM EDT Office Visit [facility] [address] [place], [place] [phone] [facility] [address] [place] [address] Health Maintenance Due Date Last Done Comments [...] 2024 , 06/13/2013 Pap Smear 07/11/2024 07/11/2021 Alcohol/Substance Use Screening 06/24/2025 06/24/2024 Depression Screening [...] patient's age to complete this topic Meningococcal B Vaccine Aged Out No l onger eligible based on patient's age to complete [...] Procedure Name Priority Date/Time Associated Diagnosis Comments GRAM STAIN Routine 07/06/2024 5:50 PM EST BI MAMMOGRAM SCREENING TOMOSYNTHESIS BILATERAL Routine 11/23/2023 4:05 PM EDT Breast cancer screening by mammogram THINPREP IMAGING PAP AND HPV MRNA E6/E7, WITH CT/NG, TRICHOMONAS Routine 07/11/2021 12:00 AM EST from Last 3 Months or Most Recently Relevant to Health Maintenance Results * Gram stain (07/06/2024 5:50 PM EST) 07/06/2024 5:50 PM EST 07/07/2024 12:42 PM EST Comment:Thumb R Narrative [facility] - 07/08/2024 10:41 AM EST RIGHT FINGERNAIL- THUMB Gram stain results: No polys 3+ Gram-positive cocci RIGHT FINGERNAIL- THUMB Streptococcus pyogenes (Grp A) Quant Org ID 3+ Susc N/A Susceptibility not routinely performed on this isolate. Specimen Source: Thumb Right us Lillie Montoya [facility] MICROBIOLOGY - GENERAL ORD ERABLES Final Result [facility] [address] [place] [address] [phone] * BI Mammogram Screening Tomosynthesis Bilateral (11/23/2023 4:05 PM EDT) Anatomical Region Laterality Modality Breast Bilateral Mammography 11/23/2023 4:05 PM EDT Narrative 12/15/2023 6:25 PM EDT ? [facility] ? [address] ?[place] [address] ? Mammography Report ? Signed ? Patient: French,Chelsy ?MR#: [id number] ?? [id number] ? : 1985 ?Acct:[id number] ? Age/Sex: 38 / F ?ADM Date: 11/22/ ? Loc: HO.MAMMO ? Attending Dr: Amanda Dmitriy HYBRID CAR MECHANIC ? Ordering Physician: Dmitriy,Amanda HYBRID CAR MECHANIC ?Results: 1Nega ?? tive ? Date of Service: 11/22/ ?Follow Up: 1 Year From Orig ?? inal Mammogram ? Procedure(s): MM tomosynthesis screening BI ?? Accession Number(s): [id number] ? cc: Dmitriy,Amanda HYBRID CAR MECHANIC ? EXAMINATION: ?? MM SCREENING DIGITAL BREAST [...] 1822 ? DD/ 1605 ? TD/TT: ? Core Layer Machine Operator: ? Procedure Note Vinicius, Image - 12/15/2023 [facility] [address] [place] [address] Mammography Report Signed Patient: Chelsy BraswellMR#: [id number] : 1985Acct:[id number] Age/Sex: 38 / FADM Date: 11/23/23 Loc: [facility] Attending Dr: Amanda Izaguirre [employer] MECH[employer]IC Ordering Physician: Amanda Izaguirre FNPResults: 1Nega tive Date of Service: 11/23/23Follow Up: 1 Year From Orig inal Mammogram Procedure(s): MM tomosynthesis screening BI Accession Number(s): [id number] cc: [facility] HYBRID CAR MECHANIC EXAMINATION: MM SCREENING DIGITAL BREAST TOMOSYNTHESIS, BILATERAL [...] in OV> 12/15/23 1822 DD/ 1605 TD/TT: Core Layer Machine Operator: [facility] HYBRID CAR MECHANIC IMG BI PROCEDURES Edited Resu lt - Final * THINPREP TIS PAP AND HPV mRNA E6/E7, CT/NG, TRICH (07/11/2021 12:00 AM EST) Chlamydia trachomatis RNA, TMA, Urogenital NOT DETECTED NOT DETECTED [facility] Clinical Information: None given [facility] COMMENT SEE COMMENT [facility] Comment: The analytical performance characteristics of this assay, when used to test SurePath(TM) specimens have been determined by [facility]. The modifications have not been cleared or approved by the FDA. This assay has been validated pursuant to the CLIA regulations and is used for clinical purposes. ?? For additional information, please refer to https://education.Mobile Multimedia/faq/LVX991 (This link is being provided for information/ [...] has been evaluated with computer assisted technology. [facility] Mission Analyst: SEE COMMENT [facility] Comment: GSG, CT(ASCP) CT screening location: [address] ??[id number] HPV nRNA E6/E7 Not Detected Not Detected [facility] Comment: Methodology: Translation Director-Mediated Amplification This assay detects E6/E7 viral messenger RNA (mRNA) from 14 high-risk HPV types (16,18,31,33,35,39,45,51,52,56,58,59,66,68). ? The analytical performance characteristics of this assay have been determined by [facility]. The modifications have not been cleared or approved by the FDA. This assay has been validated pursuant to the CLIA regulations and is used for clinical purposes. ?? For additional information, please refer to http://education.Mobile Multimedia/faq/BIL957w7 (This link if provided for information/ educational purposes only.) Interpretation/Re sult: Negative for intraepithelial lesion or malignancy. [facility] LMP: NONE GIVEN [facility] Neisseria gonorrhoeae RNA, TMA, Urogenital NOT DETECTED NOT DETECTED [facility] Prev. BX: NONE GIVEN [facility] Prev. PAP: NONE GIVEN [facility] SOURCE: None given [facility] Statement Of Adequacy: SEE COMMENT [facility] Comment: Satisfactory for evaluation. Endocervical/transformation zone component present. Trichomonas vaginalis, QL, TMA, PAP Vial NOT DETECTED NOT DETECTED [facility] Comment: The analytical performance characteristics of this assay have been determined by [facility]. The modifications have not been cleared or approved by the FDA. This assay has been validated pursuant to the CLIA regulations and is used for clinical purposes. ?? For additional information, please refer to http://education.Izzui.AskBot/ faq/Trichomonastma (This link is being provided for information/ educational purposes only.) ?? 07/11/2021 us Jossy Cisneros NP LAB PATHOLOGY ORDERABLES Final Result [facility] [address] from Last 3 Months or Most Recently Relevant to Health Maintenance Insurance (Front) [place], [place] [employer] [address] ([address]) [place] [address] (Front) [place] [address] (Front) [place] Care Teams Component Prep Operator Relationship Specialty Start Date End Date Amanda Izaguirre FNP [address] [place] [address] PCP - General Family Medicine 12/26/21
--- NOTE | 2024-09-19 14:15 | A.OFFVIS_ITS ---
Vital Signs 09/19/24 14:16 Height 5 ft 2 in Weight 104 lb BMI 19.0 Intake Visit Reasons: PO RT repeat CTR 09/05/24 AR Intake Note: Chelsy is a 39 year old right hand dominant female who presents today for her first post operative appointment s/p Right Carpal Tunnel Release Revision 09/05/24. States her symptoms have not improved however she stated she is able to sleep a lot better. Right Carpal Tunnel Release 11/15/2020 Allergies No Known Allergies Allergy (Verified 09/19/24 14:17) HPI HPI PO RT repeat CTR 09/05/24 AR: Details: Chelsy is a 39 year old right hand dominant female who presents today for her first post operative appointment s/p Right Carpal Tunnel Release Revision 09/05/24. States her symptoms have not improved however she stated she is able to sleep a lot better. Patient states that this is due to the fact that she has experienced significant pain relief, her dense numbness and tingling has remained. 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 Normal sensation to all other digits in the right hand today. Normal sensation in the tips of all digits of the left hand today. No thenar or intrinsic wasting. Good APB muscle firing and good finger cross. Vascular: Capillary refill brisk. ROM: Patient can make a fist and extend all their digits. Skin: Well approximated and well healing incision site noted on the volar right wrist No lacerations or abrasions noted. General: No ecchymosis. No erythema or evidence of infection. Assessment & Plan Assessment & Plan (1) Carpal tunnel syndrome of right wrist: Code(s): G56.01 - Carpal tunnel syndrome, right upper limb Category: Medical Plan 1. Status post right repeat carpal tunnel release Dense numbness after surgery DOS 09/05/2024 Patient appears to be recovering well postoperatively Patient is educated about the typical recovery course Sutures removed, Steri-Strips applied Patient is informed that she will require no further acute follow-up with us for this surgery, as she appears to be recovering very well Return to work in 2 weeks Patient is amenable to this plan Follow-up as needed the Coding Level of Care Code Global (60921) Diagnoses Carpal tunnel syndrome of right wrist G56.01
[2024-09-19 14:16] VITALS: BMI 19.0
== END 2024-09-19 14:22 | disposition home or self-care (01) ==
LOC: HO.HOS 13:59
PROVIDERS: PCP Registered Nurse
DX: G56.01 Carpal tunnel syndrome, right upper limb (principal)
CPT/HCPCS: 99024

== ENCOUNTER → 2024-09-19 13:59 | Outpatient (BNVA) | payer MEDICAID, SELFPAY | PROVIDERS: PCP Registered Nurse | DX: Z09 Encounter for follow-up examination after completed treatment for conditions other than malignant neoplasm (principal); Z86.69 Personal history of other diseases of the nervous system and sense organs; Z98.890 Other specified postprocedural states | CPT/HCPCS: 99212 ==

== ENCOUNTER 2024-09-20 10:17 | Outpatient (AMB) | payer MEDICAID, SELFPAY ==
--- NOTE | 2024-09-20 10:27 | A.OFFVIS_ITS ---
Vital Signs 09/20/24 10:36 Height 5 ft 2 in Weight 101 lb 10.13 oz BMI 18.6 BP 84/62 L Blood Pressure Location Lt brachial Position Sitting Respiration 16 Pulse 60 Pulse Source Pulse Oximeter Pulse Oximetry (%) 99 Oxygen Delivery Method Room Air Intake Visit Reasons: Polyartralgia/New Patient Intake Note: Patient presents for Polyarthralgia. Allergies No Known Allergies Allergy (Verified 09/20/24 10:30) Medication List - Last Reconciled 09/20/24 by Kamilah Queen MD acetaminophen mg PO ibuprofen 600 mg PO Q6H PRN quetiapine 100 mg PO BEDTIME HPI Comments Details: Patient is a 39-year-old female with anxiety/depression here today for evaluation of polyarthralgias Patient states that for the past 10 years she has been experiencing worsening whole-body pain. Denies rashes, photosensitivity, alopecia, oral/nasal ulcers, sicca symptoms, lymphadenopathy, chest pain/shortness of breath, inflammatory type joint pain, foamy urine, lower extremity edema, muscle weakness, Raynaud's Also denies history of seizure, CVA, psychosis, history of kidney problems, history of cytopenias, history of VTE including PE or DVTs OB History: +2 (1 and 1 miscarriage at 8 weeks) Has tried gabapentin in the past with no significant relief PFSH Medical History (Updated 09/20/24 @ 10:48 by Kamilah Queen MD) Fibromyalgia Surgical History (Updated 09/20/24 @ 10:33 by BEBA Andrew) History of carpal tunnel surgery Family History (Updated 09/20/24 @ 10:35 by BEBA Andrew) Maternal Grandfather Diabetes Maternal Grandmother Acute rheumatoid arthritis Social History (Updated 09/20/24 @ 10:36 by BEBA Andrew) Household Members: Family Housing: Apartment Patient Tobacco Use Status: Current everyday Tobacco user Tobacco use type: Cigarette Cigarettes Per Day: 10 Current occupational status: employed 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 Review of Systems Const Details: Review of Systems Constitutional: Denies fever, chills, weight loss ENT: Denies vision changes, eye pain or eye redness, dental caries, dry mouth GI: Denies nausea, vomiting, diarrhea, abdominal pain, change in BM Pulm: Denies SOB, MONSALVE, hemoptysis, wheezing Cards: Denies chest pain, palpitations Skin: Denies Raynaud's, rash, nail changes, photosensitivity, HAIR DRYER: Denies headaches, weakness, paresthesias, recurrent falls MSK: as per HPI All other systems reviewed and are unremarkable except noted above Physical Exam Vital Signs: Last Vital Signs Pulse 60 09/20/24 10:36 Resp 16 09/20/24 10:36 BP 84/62 L 09/20/24 10:36 Pulse Ox 99 09/20/24 10:36 Oxygen Delivery Method Room Air 09/20/24 10:36 BMI result Body Mass Index 18.6 Vital signs reviewed Physical Examination CONSTITUITIONAL Patient alert and cooperative. Well appearing and in no apparent painful distress HEENT Conjunctiva and sclera clear. ?Pupils equal round and reactive to light. ?No lymphadenopathy. ? CHEST/RESPIRATORY SYSTEM Normal respiratory effort and able to speak in complete sentences. ?Clear to auscultation bilaterally. ?No crackles, rales, rhonchi, wheezes heard. CARDIAC SYSTEM Regular rate and rhythm. ?S1 and S2 heard no murmurs. ?Radial pulses intact bilaterally MSK Hands: ?Able to make a fist. No synovitis noted to the MCPs, PIPs or DIPs. ?No tenderness to palpation of these joints. No deformities noted. ? Wrists: ?Full range of motion at the wrists without pain. ?No tenderness to palpation or synovitis noted to the wrists. Elbows: Full range of motion without pain. No tenderness, weakness, swelling, increased warmth or erythema. Shoulders: Full range of active range of motion without pain. No tenderness, weakness, swelling, increased warmth or erythema. Knees: ?Full range of motion. ?No tenderness, swelling, increased warmth or erythema.?No effusion or crepitations Ankles: Full range of motion. ?No tenderness, swelling, increased warmth or erythema.? Feet: ?Negative squeeze test. ?No tenderness to palpation or swelling of the MTPs. Tender points:?Tenderness to palpation of the bilateral trapezius, supraspinatus, greater trochanters, anterior costochondral junctions, bilateral gluteal areas, bilateral suboccipital muscle insertions SKIN Skin intact without rashes. Results Reviewed Results Reviewed: Laboratory Tests 12/25/22 15:30 WBC 8.0 RBC 4.36 Hgb 14.6 Hct 42.5 Plt Count 229 ESR 7 Sodium 139 Potassium 3.9 Chloride 104 Carbon Dioxide 26 BUN 8 L Creatinine 0.75 C-Reactive Protein < 0.04 Laboratory Tests 12/25/22 15:30 Rheumatoid Factor < 13.0 Cycl Citrul Peptide IgG <16 Assessment & Plan Assessment & Plan (1) Fibromyalgia: Code(s): M79.7 - Fibromyalgia Category: Medical Plan: #Fibromyalgia Patient is a 39-year-old female here today for evaluation of polyarthralgias. Her polyarthralgias are likely due to fibromyalgia and early degenerative joint disease. Discussed with patient the diagnosis of fibromyalgia and that it is a chronic pain syndrome with no cure. I also discussed current treatment options including pregabalin which the patient is willing to try. Plan - Pregabalin 25mg at night for 2 weeks then increase to 25mg twice a day if tolerated - Labs today: CBC, CMP, ESR, CRP, RF, CCP - RTC 6 months Plan I spent 30 minutes reviewing the record and labs, taking a history, examining the patient, discussing the treatment plan, ordering diagnostic work up and documenting in the medical record Orders: Orders Complete Blood Count Auto Diff 09/20/24. - Fibromyalgia Comprehensive Met. Panel 09/20/24. - Fibromyalgia Erythrocyte Sedimentation Rate 09/20/24. - Fibromyalgia Vitamin D 25-OH (D2 and D3) 09/20/24. - Fibromyalgia Rheumatoid Factor 09/20/24. - Fibromyalgia Cyclic Citrullinated Peptide 09/20/24. - Fibromyalgia C Reactive Protein 09/20/24. - Fibromyalgia Medications: New pregabalin 25 mg PO BID 90 days 180 caps 1RF M79.7 - Fibromyalgia Coding Level of Care Code New Pt Level 3 (09300) Diagnoses Fibromyalgia M79.7
[2024-09-20 10:36] VITALS: BP 84/62; PULSE 60; RESP 16; O2SAT 99; BMI 18.6
--- OUTSIDE RECORDS SUMMARY | 2024-09-20 11:28 | XMS_ITS | Clinical Summary ---
Author Organization [employer] Address [address] [facility] [address] [place] [address] Care Team Providers Care Route Delivery Manager Name Role Phone Amanda Izaguirre [facility] Primary Care Provider [phone] Allergies No known active allergies Medications * [...] intervention , Patient to reach out to [facility] team as needed, Patient to engage in [...] intervention , Patient to reach out to [facility] team as needed, Patient to engage in OP therapy , and Patient to reach out to [facility] as needed. Advised booking sooner appointments with [facility] for psychopharmacology and OP individual therapy. Encounters Date Type Department Care Team Description 09/08/[address] [address] Amanda Izaguirre FNP recall 07/15/2024 Population Health Risk Score [facility] () Department [address] [id number] Provider, Population Health Generic 07/11/2024 Orders Only [facility] [address] [place], [place] [id number] Lillie Montoya FNP 07/08/2024 Telephone [facility] [address] [place] [phone] Maribel Barrientos NP Call to Lab 07/06/2024 5:20 PM EST Office Visit [facility] [address] [place] [phone] Lillie Montoya FNP Injury to fingernail of right hand, subsequent encounter (Primary Dx); Cellulitis of finger of right hand 07/06/2024 Travel 07/06/[address] [address] Amanda Izaguirre FNP Nurse Triage 07/04/2024 5:00 PM EST [facility] [address] [address] Jocy Girard NP Injury to fingernail of right hand, initial encounter (Primary Dx) 06/24/2024 9:15 AM EST Office Visit [address] [address] Amanda Izaguirre FNP Mood disorder (CMS/HCC) (Primary Dx); Other eczema; Polyarthralgia; Encounter for immunization 06/24/2024 Travel 06/23/[address] [address] Amanda Izaguirre FNP chart prep from Last [...] Description 12/12/2024 2:00 PM EDT Office Visit [facility] [address] [place] [address] [facility] [address] [place] [address] Health Maintenance Due Date Last Done Comments HIV Screening 1985 Lipid Panel 1985 Disability Screening 1985 Family Planning (PISQ) 1998 Hepatitis C [...] 5:50 PM EST 07/07/2024 12:42 PM EST Comment:Timothy Paz [facility] - 07/08/2024 10:41 AM EST RIGHT FINGERNAIL- THUMB Gram stain results: No polys 3+ Gram-positive cocci RIGHT FINGERNAIL- THUMB Streptococcus pyogenes (Grp A) Quant Org ID 3+ Susc N/A Susceptibility not routinely performed on this isolate. Specimen Source: Thumb Right us Lillie Montoya [employer] [facility] [facility] MICROBIOLOGY - GENERAL ORD ERABLES Final Result [facility] [address] [place] [address] [phone] * BI Mammogram Screening Tomosynthesis Bilateral (11/23/2023 4:05 PM EDT) Anatomical Region Laterality Modality Breast Bilateral Mammography 11/23/2023 4:05 PM EDT Narrative 12/15/2023 6:25 PM EDT ? [facility] ? [address] ?[place] [address] ? Mammography Report ? Signed ? Patient: French,Chelsy ?MR#: [id number] ?? [id number] ? : 1985 ?Acct:[id number] ? Age/Sex: 38 / F ?ADM Date: 11/22/ ? Loc: HO.MAMMO ? Attending Dr: Amanda Dmitriy [employer] ? Ordering Physician: Dmitriy,Amanda [employer] ?Results: 1Nega ?? tive ? Date of Service: 11/22/ ?Follow Up: 1 Year From Orig ?? inal Mammogram ? Procedure(s): MM tomosynthesis screening BI ?? Accession Number(s): [id number] ? cc: Doland,Amanda [employer] ? EXAMINATION: ?? MM SCREENING DIGITAL BREAST [...] 1822 ? DD/ 1605 ? TD/TT: ? Aircraft Body Repairer: ? Procedure Note Vinicius, Image - 12/15/2023 [facility] [address] [place] [address] Dr. White, CARRIE [address] Mammography Report Signed Patient: Chelsy BraswellMR#: [id number] : 1985Acct:[id number] Age/Sex: 38 / FADM Date: 11/23/23 Loc: MALINA Attending Dr: Amanda Izaguirre [employer] Ordering Physician: Amanda Izaguirre FNPResults: 1Nega tive Date of Service: 11/23/23Follow Up: 1 Year From Orig inal Mammogram Procedure(s): MM tomosynthesis screening BI Accession Number(s): [id number] cc: Amanda Izaguirre [employer] EXAMINATION: MM SCREENING DIGITAL BREAST TOMOSYNTHESIS, BILATERAL [...] in OV> 12/15/23 1822 DD/ 1605 TD/TT: Aircraft Body Repairer: [facility] [employer] IMG BI PROCEDURES Edited Resu lt - Final * THINPREP TIS PAP AND HPV mRNA E6/E7, CT/NG, TRICH (07/11/2021 12:00 AM EST) Chlamydia trachomatis RNA, TMA, Urogenital NOT DETECTED NOT DETECTED [facility] Clinical Information: None given [facility] COMMENT SEE COMMENT [facility] Comment: The analytical performance characteristics of this assay, when used to test SurePath(TM) specimens have been determined by [employer]. The modifications have not been cleared or approved by the FDA. This assay has been validated pursuant to the CLIA regulations and is used for clinical purposes. ?? For additional information, please refer to https://education.[employer]/faq/UKY559 (This link is being provided for information/ [...] has been evaluated with computer assisted technology. [facility] Procurement Clerk: SEE COMMENT [facility] Comment: GSG, CT(ASCP) CT screening location: [address] ??[address] HPV nRNA E6/E7 Not Detected Not Detected [facility] Comment: Methodology: Cash Clerk-Mediated Amplification This assay detects E6/E7 viral messenger RNA (mRNA) from 14 high-risk HPV types (16,18,31,33,35,39,45,51,52,56,58,59,66,68). ? The analytical performance characteristics of this assay have been determined by [employer]. The modifications have not been cleared or approved by the FDA. This assay has been validated pursuant to the CLIA regulations and is used for clinical purposes. ?? For additional information, please refer to http://education.[employer]/faq/XNQ949x9 (This link if provided for information/ educational purposes only.) Interpretation/Re sult: Negative for intraepithelial lesion or malignancy. [facility] LMP: NONE GIVEN [facility] Neisseria gonorrhoeae RNA, TMA, Urogenital NOT DETECTED NOT DETECTED [facility] Prev. BX: NONE GIVEN [facility] Prev. PAP: NONE GIVEN [facility] SOURCE: None given [facility] Statement Of Adequacy: SEE COMMENT [facility] Comment: Satisfactory for evaluation. Endocervical/transformation zone component present. Trichomonas vaginalis, QL, TMA, PAP Vial NOT DETECTED NOT DETECTED [facility] Comment: The analytical performance characteristics of this assay have been determined by [employer]. The modifications have not been cleared or approved by the FDA. This assay has been validated pursuant to the CLIA regulations and is used for clinical purposes. ?? For additional information, please refer to http://education.[employer]icina/ faq/Trichomonastma (This link is being provided for information/ educational purposes only.) ?? 07/11/2021 us Jossy Cisneros NP LAB PATHOLOGY ORDERABLES Final Result [facility] [address] from Last 3 Months or Most Recently Relevant to Health Maintenance Insurance (Front) [place] [employer] (Front) [place] [address] (Front) [place] [address] (Front) [place] [address] Care Teams Route Delivery Manager Relationship Specialty Start Date End Date Amanda Izaguirre FNP [address] [place] [address] PCP - General Family Medicine 12/26/21
--- OUTSIDE RECORDS SUMMARY | 2024-09-20 11:28 | XMS_ITS | Encounter Summary ---
Author Organization [employer] Address [address] [facility] [address] [place] [address] Care Team Providers Care International Travel Consultant Name Role Phone [facility] Primary Care Provider Reason for Visit * Reason Onset Date Comments Results 01/16/2023 Encounter Details Date Type Department Care Team ([facility] Contact Info) Description 01/16/2023 Telephone [facility] [address] [place] [address] [facility] [address] [place] [address] Results Social History Tobacco Use Types Packs/Day [...] to lab results. Please contact pt at [phone] documented in this encounter Plan of Treatment Upcoming Encounters Date Type Department Care Team (Late st Contact Info) Description 12/12/2024 2:00 PM EDT Office Visit [facility] [address] [place] [address] Amanda Izaguirre FNP [address] [place] [address] documented as of this encounter Visit Diagnoses Not on filedocumented in this encounter Additional Health Concerns Assessment Noted Time PHQ-9 Depression Total Score: 0 09/24/19 23 11:20 AM EDT documented as of this encounter Care Teams International Travel Consultant Relationship Specialty Start Date End Date Amanda Izaguirre FNP [address] [place] [address] PCP - General Family Medicine 12/26/21 documented as of this encounter
== END 2024-09-20 11:05 | disposition home or self-care (01) ==
LOC: HO.RHE 10:18
PROVIDERS: PCP Registered Nurse; Visit Provider Student in an Organized Health Care Education/Training Program
DX: M79.7 Fibromyalgia (principal)
CPT/HCPCS: 99203

== ENCOUNTER → 2024-09-20 10:17 | Outpatient (BNVA) | payer MEDICAID, SELFPAY | PROVIDERS: PCP Registered Nurse; Visit Provider Student in an Organized Health Care Education/Training Program | DX: M79.7 Fibromyalgia (principal) | CPT/HCPCS: 99202 ==

== ENCOUNTER 2025-03-21 15:32 | Outpatient (REF) | payer OTHER, SELFPAY ==
[2025-03-21 15:45] LABS: MANUAL DIFF FLAG NO
[2025-03-21 16:18] LABS: Hematocrit 40.0 % (37.0-47.0); Hemoglobin 13.6 g/dl (12.0-16.0); Imm Gran Abs Auto 0.03 X10*3/uL (0.00-0.03); Imm Gran Pct Auto 0.3 % (0.0-0.4); Lymphocytes Absolute Auto 3.4 X10*3/uL (1.2-4.9); Mean Corpuscular HGB Conc 34.0 g/dl (31.0-35.0); Mean Corpuscular Hemoglobin 33.4 pg (27.0-33.0); Mean Corpuscular Volume 98.3 fL (80.0-98.0); NRBC Abs Auto 0.000 X10*3/uL (0.0-0.012); NRBC Pct Auto 0.0 /100WBC (0.0-0.2); Platelet Count 241 X10*3/uL (160-400); Red Blood Count 4.07 X10*6/uL (4.20-5.50); White Blood Count 8.8 X10*3/uL (4.8-10.8)
[2025-03-21 16:47] LABS: Alanine Aminotransferase 14 U/L (0-31); Albumin Level 4.9 g/dL (3.5-5.0); Alkaline Phosphatase 51 U/L (39-117); Anion Gap 11 (12-20); Aspartate Amino Transferase 25 U/L (5-31); Blood Urea Nitrogen 10 mg/dL (9-16); Calcium 9.4 mg/dL (8.4-10.2); Carbon Dioxide 27 mmol/L (22-29); Chloride 106 mmol/L (96-108); Estimated Glomerular Filt Rate > 60; Potassium 3.6 mmol/L (3.3-5.1); Sodium 140 mmol/L (135-145); Total Protein 7.6 g/dL (6.5-8.0)
[2025-03-25 18:13] LABS: Vitamin D 25-OH, D2 <4 ng/mL; Vitamin D 25-OH, D3 23 ng/mL; Vitamin D 25-OH, Total 23 ng/mL (30-100)
== END 2025-03-21 15:33 | disposition home or self-care (01) ==
LOC: HO.LAB 15:32
PROVIDERS: PCP Registered Nurse; Visit Provider Student in an Organized Health Care Education/Training Program
DX: M79.7 Fibromyalgia (principal)
CPT/HCPCS: 36415; 80053; 82306; 85025; 85652; 86140; 86200; 86431

== ENCOUNTER 2025-03-29 16:01 | Outpatient (REF) | payer OTHER, SELFPAY ==
[2025-03-30 05:48] LABS: CT PCR Urine NOT DETECTED (Not Detect.); NG PCR Urine NOT DETECTED (Not Detect.)
== END 2025-03-29 16:02 | disposition home or self-care (01) ==
LOC: HO.LNP 16:01
PROVIDERS: Visit Provider Registered Nurse
DX: Z00.00 Encounter for general adult medical examination without abnormal findings (principal); Z20.2 Contact with and (suspected) exposure to infections with a predominantly sexual mode of transmission
CPT/HCPCS: 87491; 87591